=== PATIENT | male | born 1950 | race Caucasian/White ===

== ENCOUNTER 2016-06-01 17:19 | Inpatient (IN) | payer MEDICARE, OTHER ==
[~2016-06-01] VITALS: Ht 180.3 cm; Wt 71.5 kg
[~2016-06-01 17:19] MED LIST: ACET325T33 PO; BISA-57 PO; CEPH250S33 PO; DOCU-144 PO; SERT-165 PO; SPIR50TA PO
[2016-06-01] MEDS ORDERED: morphine 4 MG/ML VIAL IV STA ×2 (19:36→22:50)
[2016-06-01] MEDS ORDERED: HYDROCODONE/APAP (10/325) TAB PO ONE (20:00)
[2016-06-01] MEDS ORDERED: QUET100T32 PO (20:05)
[2016-06-01] MEDS ORDERED: TRAZ50TA18 PO (20:05)
[2016-06-01] MEDS ORDERED: SERT-165 PO (20:09)
[2016-06-01] MEDS ORDERED: CEPH500C PO (20:10)
[2016-06-01] MEDS ORDERED: BACTDS PO (20:11)
[2016-06-01] MEDS ORDERED: ACAM333T7 PO (20:17)
--- NOTE | 2016-06-01 22:20 | RADRPT ---
PROCEDURE: CT Chest without contrast. CLINICAL INDICATION: Anterior chest wall pain and tenderness. TECHNIQUE: A CT scan of the chest without contrast was performed. Coronal and sagittal reformatted images were obtained from the axial source images. CTDIvol: 15.81 mGy. DLP: 708.92 mGy-cm. One or more of the following dose reduction techniques were used: - Automated exposure control. - Adjustment of the mA and/or kV according to patient size. - Use of iterative reconstruction technique. COMPARISON: Liver CT dated 07/01/2015. FINDINGS: There is no suspicious thyroid lesion. No thoracic lymphadenopathy is seen. The trachea and mainst em bronchi are patent. The heart is not enlarged. There is no pericardial effusion. The main pulm onary artery is dilated (4.2 cm). There are mild arterial calcifications. There is no pneumomediast inum. There are scattered bilateral pleural calcifications. Mild to moderate emphysematous changes are not ed in both lungs. There is also mild to moderate pulmonary fibrosis, in a lower lung predominant di stribution, right more than left. No pleural effusion or pneumothorax is identified. The superior ossification center of the sternum is not united to the more inferior sternum, and is p osteriorly dislocated approximately 7 mm with respect to the more inferior sternum. This also appea rs to be associated with a very small fracture the anterior sternal cortex. There is minimal blood anterior and posterior to the sternum in this region. No evidence of injury to underlying mediastin al structures is seen. There are age indeterminate compression fractures at T4 (mild), T6 (moderate), T12 (moderate), and L 1 (mild to moderate. There also chronic-appearing compression fractures at T7 and T9-T11 (mild). The patient is status post cholecystectomy. The common bile duct is dilated (2.4 cm) with an internal medicine doctor al biliary stent in place. There is a nonspecific 1.2 cm low-attenuation lesion in the spleen, unch anged since the prior CT. IMPRESSION: 1. The superior ossification center of the sternum is not united to the more inferior sternum, and is posteriorly dislocated approximately 7 mm with respect to the more inferior sternum. This also a ppears to be associated with a very small fracture the anterior sternal cortex. There is minimal blo od anterior and posterior to the sternum in this region. No evidence of a injury to underlying medi astinal structures is seen. 2. Age indeterminate compression fractures at T4 (mild), T6 (moderate), T12 (moderate), and L1 (mil d to moderate. There also chronic-appearing compression fractures at T7 and T9-T11 (mild). This cou ld be further evaluated with MRI if clinically warranted. 3. Dilated main pulmonary artery, consistent with pulmonary hypertension. 4. Mild atherosclerotic arterial calcifications. 5. Mild to moderate emphysematous changes are noted in both lungs. 6. Mild to moderate pulmonary fibrosis, in a lower lung predominant distribution, right more than l eft. 7. Scattered bilateral pleural calcifications, nonspecific. 8. Status post cholecystectomy. 9. Dilated common bile duct (2.4 cm), increased since the prior liver CT dated 07/01/2015. There i s an internal biliary stent in place. Correlation with bilirubin levels is recommended. Call report: A call report of the findings was made to Dr. Kumari at 10:13 p.m. on 06/01/2016. RPTAT: HTAR .Boo Kinney MD, MD Date Time Electronically viewed and signed by .Boo Kinney MD, MD on 06/01/2016 22:19 .R/
[2016-06-01] MEDS ORDERED: IBUPROFEN 600 MG TAB PO ONE (22:30)
--- NOTE | 2016-06-01 22:39 | ERA ---
ER Documentation Chief Complaint Date/Time DATE: 06/01/16 TIME: 22:31 Chief Complaint Pt with CP and SOB X 2 days. HPI 65-year-old male presenting with chest pain for 3 days. He states he was stretching out his arms when he suddenly felt a pop in his upper chest. He has had sharp, stabbing pain in his chest since that has been nonradiating. Worse with movement or deep inspiration. She took his friend's [place] which slightly helped. He has had some associated shortness of breath, no fevers or chills, no nausea, vomiting, diaphoresis. He denies any trauma to the chest. ROS All systems reviewed and are negative except as per history of present illness. Medications Home Meds Reported Medications Acamprosate (Acamprosate Calcium) 333 Mg Tablet.dr, 666 MG PO TID, TAB 06/01/16 Sulfamethoxazole-Trimethoprim* (Bactrim* DS) 800-160 Mg Tab, 1 TAB PO BID, #20 TAB 06/01/16 Cephalexin* (Cephalexin*) 500 Mg Capsule, 500 MG PO TID, #28 CAP 06/01/16 Sertraline Hcl* (Sertraline Hcl*) 100 Mg Tablet, 100 MG PO QAM, #30 TAB 06/01/16 Trazodone Hcl* (Trazodone Hcl*) 50 Mg Tablet, 50 MG PO QHS, #30 TAB 06/01/16 Quetiapine Fumarate* (Quetiapine Fumarate*) 100 Mg Tablet, 100 MG PO HS, TAB 06/01/16 Discontinued Scripts Cephalexin* (Cephalexin* Susp) 250 Mg/5 Ml Susp.recon, 500 MG PO Q8 for 7 Days, BOTTLE Prov:RORY ANGULO MD 07/24/15 Spironolactone* (Aldactone*) 50 Mg Tab, 50 MG PO BID DIURETICS for 28 Days, TAB Prov:RORY ANGULO MD 07/24/15 Docusate Sodium* (Colace*) 100 Mg Cap, 100 MG PO Q12H Y for CONSTIPATION for 14 Days, CAP Prov:RORY ANGULO MD 07/24/15 Bisacodyl* (Dulcolax*) 5 Mg Tabec, 5 MG PO DAILY Y for CONSTIPATION for 14 Days , BOT Prov:RORY ANGULO MD 07/24/15 Acetaminophen* (Tylenol*) 325 Mg Tab, 650 MG PO Q6H Y for PAIN LEVEL 1-3 OR FEVER for 14 Days, TAB Prov:RORY ANGULO MD 07/24/15 Sertraline Hcl* (Sertraline Hcl*) 100 Mg Tablet, 100 MG PO DAILY, #30 Prov:MARTHA MAHAN MD 07/08/15 Allergies Allergies: Coded Allergies: No Known Allergy (Unverified , 06/01/16) PMhx/Soc History of Surgery: Yes (coronary intervention, stent placement) Anesthesia Reaction: No Hx Neurological Disorder: No Hx Respiratory Disorders: No Hx Cardiac Disorders: Yes (HTN) Hx Psychiatric Problems: No Hx Miscellaneous Medical Probl: No Hx Alcohol Use: Yes (2013) Hx Substance Use: Yes Hx Tobacco Use: Yes Smoking Status: Current every day smoker FmHx Family History: No diabetes Physical Exam Vitals Vital Signs Date Time Temp Pulse Resp B/P Pulse Ox O2 Delivery O2 Flow Rate FiO2 06/01/16 17:57 99.2 101 18 133/73 95 Physical Exam Const: Nontoxic, no respiratory distress, mild distress secondary to pain Head: Atraumatic Eyes: Normal Conjunctiva ENT: Normal External Ears, Nose and Mouth. Neck: Full range of motion..~ No meningismus. Chest wall: Tenderness to palpation of the upper third of the sternum with no palpable deformities. There is tenderness right over the sternum with tenderness to the sides of the sternum as well. There is no rib tenderness. No crepitus, no deformities, no ecchymoses. Resp: Clear to auscultation bilaterally Cardio: Regular rate and rhythm, no murmurs Abd: Soft, non tender, non distended. Normal bowel sounds Skin: No petechiae or rashes Back: No midline or flank tenderness Ext: No cyanosis, or edema Neur: Awake and alert Psych: Normal Mood and Affect Results 24 hrs Current Medications Medications (Trade) Dose Ordered Sig/Jesu Route PRN Reason Start Time Stop Time Status Last Admin Dose Admin Morphine Sulfate (morphine) 4 mg ONCE STAT IV 06/01/16 19:36 06/01/16 19:44 DC Acetaminophen/ Hydrocodone Bitart ([place] (10/325)) 1 tab ONCE ONCE PO 06/01/16 20:00 06/01/16 20:01 DC 06/01/16 19:48 Ibuprofen (Motrin) 600 mg ONCE ONCE PO 06/01/16 22:30 06/01/16 22:31 DC 06/01/16 22:47 Procedures/MDM EKG: Rate/Rhythm: Sinus tachycardia at 101 bpm QRS, ST, T-waves: No changes consistent w/ acute ischemia Impression: No evidence of ischemia or arrhythmia CT chest without IV contrast: IMPRESSION: 1. The superior ossification center of the sternum is not united to the more inferior sternum, and is posteriorly dislocated approximately 7 mm with respect to the more inferior sternum. This also appears to be associated with a very small fracture the anterior sternal cortex. There is minimal blood anterior and posterior to the sternum in this region. No evidence of a injury to underlying mediastinal structures is seen. 2. Age indeterminate compression fractures at T4 (mild), T6 (moderate), T12 ( moderate), and L1 (mild to moderate. There also chronic-appearing compression fractures at T7 and T9-T11 (mild). This could be further evaluated with MRI if clinically warranted. 3. Dilated main pulmonary artery, consistent with pulmonary hypertension. 4. Mild atherosclerotic arterial calcifications. 5. Mild to moderate emphysematous changes are noted in both lungs. 6. Mild to moderate pulmonary fibrosis, in a lower lung predominant distribution, right more than left. 7. Scattered bilateral pleural calcifications, nonspecific. 8. Status post cholecystectomy. 9. Dilated common bile duct (2.4 cm), increased since the prior liver CT dated 07/01/2015. There is an internal biliary stent in place. Correlation with bilirubin levels is recommended. Call report: A call report of the findings was made to Dr. Kumari at 10:13 p.m. on 06/01/2016. RPTAT: HTAR .Boo Kinney MD, MD Date Time Electronically viewed and signed by .Boo Kinney MD, MD on 06/01/2016 22:19 Patient is presenting with nontraumatic sternal fracture with a displaced fragment. There does not seem to be any damage to the mediastinal structures. He is hemodynamically stable. EKG did not show any significant abnormalities. I spoke with Dr. Keene, the cardiothoracic surgeon weed controller, who recommended admission for pain control and he stated he would see the patient in the morning if he is stable. I discussed the plan with the patient. He is agreeable to admission. Basic labs were sent and are still pending. Patient will be admitted to [facility]. Accepting Care Team: Current data and ongoing care discussed. Time: Time of admission Primary Provider: Jordan Consulting: Jassi Outstanding Data: none Departure Diagnosis: Primary Impression: Sternal fracture Qualified Code: S22.22XA - Closed fracture of body of sternum, initial encounter Additional Impression: Chest pain Qualified Code: R07.89 - Other chest pain LUCINDA KUMARI MD Jun 01, 2016 22:38
[2016-06-01] MEDS ORDERED: ONDANSETRON 4 MG INJ IV PRN (23:00)
[2016-06-01] MEDS ORDERED: ACETAMINOPHEN 325 MG TAB PO PRN (23:00)
[2016-06-02 00:27] LABS: ADD SCAN DIFF NO
[2016-06-02 00:30] LABS: ABNORMAL IP MESSAGE 1; BASOPHILS % 0.9 % (0.0-2.0); EOSINOPHILS # 0.2 10^3/ul (0.0-0.5); EOSINOPHILS % 5.8 % (0.0-7.0); HEMATOCRIT 29.7 % (42.0-52.0); LYMPHOCYTES # 0.9 10^3/ul (0.8-2.9); LYMPHOCYTES % 25.2 % (15.0-51.0); MEAN CORPUSCULAR HEMOGLOBIN 34.6 pg (29.0-33.0); MEAN CORPUSCULAR HGB CONC 33.7 g/dl (32.0-37.0); MEAN CORPUSCULAR VOLUME 102.8 fl (82.0-101.0); MEAN PLATELET VOLUME 10.5 fl (7.4-10.4); MONOCYTE # 0.5 10^3/ul (0.3-0.9); MONOCYTES % 13.3 % (0.0-11.0); NEUTROPHIL # 1.9 10^3/ul (1.6-7.5); NEUTROPHILS % 54.2 % (39.0-77.0); PLATELET COUNT 84 10^3/UL (140-415); RED BLOOD COUNT 2.89 10^6/ul (4.70-6.10); RED CELL DISTRIBUTION WIDTH 16.4 % (11.5-14.5); WHITE BLOOD COUNT 3.5 10^3/ul (4.8-10.8)
[2016-06-02 00:41] LABS: ALBUMIN 2.7 g/dl (3.3-4.9); INR 1.15; POTASSIUM 4.1 mmol/L (3.5-5.1); PROTIME 14.7 Sec (12.2-14.2); PT RATIO 1.1
[2016-06-02 00:42] LABS: PARTIAL THROMBOPLASTIN TIME 30.8 Sec (25.0-35.0)
[2016-06-02 00:43] LABS: BILIRUBIN,INDIRECT 0.5 mg/dl (0-1.1); BILIRUBIN,TOTAL 0.5 mg/dl (0.2-1.3); CREATININE 0.65 mg/dl (0.61-1.24)
[2016-06-02 00:44] LABS: ALBUMIN/GLOBULIN RATIO 0.57; CALCIUM 7.9 mg/dl (8.4-10.2); TOTAL PROTEIN 7.4 g/dl (6.1-8.1)
[2016-06-02 00:56] LABS: TROPONIN-I 0.025 ng/ml (0.00-0.12)
[2016-06-02 01:21] VITALS: TEMP 99
[2016-06-02 02:00] VITALS: BP 152/80; PULSE 75; RESP 20
[2016-06-02 02:13] VITALS: Ht 180.3 cm; Wt 71.5 kg
[2016-06-02] MEDS ORDERED: ACETAMINOPHEN 325 MG SUPP PR PRN (03:30)
[2016-06-02] MEDS ORDERED: ONDANSETRON 4 MG INJ IV PRN (03:30)
[2016-06-02] MEDS: morphine 2 MG INJ IV PRN ×4 (04:25→22:22)
[2016-06-02] MEDS: DEXTROSE 5%-0.9% NACL 1,000 ML IV SCH ×2 (04:25→18:07)
[2016-06-02 05:46] LABS: ABNORMAL IP MESSAGE 1; ADD SCAN DIFF NO; BASOPHILS % 0.6 % (0.0-2.0); EOSINOPHILS # 0.2 10^3/ul (0.0-0.5); HEMATOCRIT 30.2 % (42.0-52.0); HEMOGLOBIN 10.1 g/dl (14.0-18.0); LYMPHOCYTES # 0.9 10^3/ul (0.8-2.9); LYMPHOCYTES % 27.2 % (15.0-51.0); MEAN CORPUSCULAR HEMOGLOBIN 34.1 pg (29.0-33.0); MEAN CORPUSCULAR HGB CONC 33.4 g/dl (32.0-37.0); MEAN PLATELET VOLUME 10.1 fl (7.4-10.4); MONOCYTE # 0.4 10^3/ul (0.3-0.9); MONOCYTES % 12.3 % (0.0-11.0); NEUTROPHIL # 1.7 10^3/ul (1.6-7.5); NEUTROPHILS % 52.3 % (39.0-77.0); PLATELET COUNT 86 10^3/UL (140-415); RED BLOOD COUNT 2.96 10^6/ul (4.70-6.10); RED CELL DISTRIBUTION WIDTH 16.6 % (11.5-14.5); WHITE BLOOD COUNT 3.2 10^3/ul (4.8-10.8)
[2016-06-02 06:18] LABS: ALBUMIN 2.6 g/dl (3.3-4.9)
[2016-06-02 06:19] LABS: POTASSIUM 3.9 mmol/L (3.5-5.1)
[2016-06-02 06:21] LABS: BILIRUBIN,INDIRECT 0.4 mg/dl (0-1.1); BILIRUBIN,TOTAL 0.4 mg/dl (0.2-1.3); CREATININE 0.74 mg/dl (0.61-1.24); TOTAL PROTEIN 6.9 g/dl (6.1-8.1)
[2016-06-02] MEDS: PANTOPRAZOLE 40 MG INJ IV SCH (06:21)
[2016-06-02 06:22] LABS: ALBUMIN/GLOBULIN RATIO 0.6; CALCIUM 8.1 mg/dl (8.4-10.2)
[2016-06-02 08:10] VITALS: BP 170/82; RESP 20
[2016-06-02] MEDS ORDERED: LIDOCAINE 1% (MDV) 20 ML INJ SC ONE (12:00)
--- NOTE | 2016-06-02 17:07 | RADRPT ---
PROCEDURE: Ultrasound guidance for placement of needle in right upper extremity vein. CLINICAL INDICATION: Venous access. TECHNIQUE: Limited sonography of the right upper extremity was performed. Ultrasound images were recorded and stored in the patient's medical record. COMPARISON: None. FINDINGS: The ultrasound images demonstrate a patent right upper extremity vein. The PICC line was inserted b y the PICC line nurse. IMPRESSION: 1. Ultrasound guidance for a needle placement in a right upper extremity vein. 2. The visualized right upper extremity vein is patent. RPTAT: QQ .Gurjit Puri MD, MD Date Time Electronically viewed and signed by .Gurjit Puri MD, MD on 06/02/2016 17:07 .R/
[2016-06-02] MEDS: NICOTINE (21 MG/24 HR) PATCH TRANSDERM SCH (18:06)
--- NOTE | 2016-06-02 18:30 | RADRPT ---
PROCEDURE: XR Chest. CLINICAL INDICATION: Check PICC line position. TECHNIQUE: Single frontal view. COMPARISON: 07/17/2015. FINDINGS: There is a right arm PICC line with the tip in the lower superior vena cava. There are benign calci fied nodules bilaterally in the upper lung zones, unchanged. Mild scarring is present at the lung b ases. The lungs are otherwise clear. The heart is enlarged. There is calcification in the aorta consistent with atherosclerosis. There is no pleural effusion. There is no pneumothorax. IMPRESSION: 1. Satisfactory position of right arm PICC line. 2. Previous granulomatous disease. 3. Mild scarring at the lung bases. 4. Cardiomegaly and atherosclerosis. RPTAT: QQ .Gurjit Puri MD, MD Date Time Electronically viewed and signed by .Gurjit Puri MD, on 06/02/2016 18:30 .R/
[2016-06-02] MEDS ORDERED: SOD CHLORIDE 0.9% 100 ML ONE (19:43)
[2016-06-02 19:45] VITALS: BP 131/70; RESP 18
--- NOTE | 2016-06-02 22:58 | QN ---
Documentation Comment [id number] RORY ANGULO MD Jun 02, 2016 22:58
[2016-06-03] MEDS: morphine 2 MG INJ IV PRN ×3 (02:21→09:13)
[2016-06-03] MEDS: PANTOPRAZOLE 40 MG INJ IV SCH (04:45)
[2016-06-03 05:14] LABS: ADD SCAN DIFF NO
[2016-06-03 05:19] LABS: ABNORMAL IP MESSAGE 1; BASOPHILS % 0.7 % (0.0-2.0); EOSINOPHILS # 0.2 10^3/ul (0.0-0.5); EOSINOPHILS % 4.2 % (0.0-7.0); HEMATOCRIT 29.9 % (42.0-52.0); HEMOGLOBIN 9.9 g/dl (14.0-18.0); LYMPHOCYTES # 0.6 10^3/ul (0.8-2.9); LYMPHOCYTES % 13.5 % (15.0-51.0); MEAN CORPUSCULAR HGB CONC 33.1 g/dl (32.0-37.0); MEAN CORPUSCULAR VOLUME 102.7 fl (82.0-101.0); MEAN PLATELET VOLUME 10.5 fl (7.4-10.4); MONOCYTE # 0.5 10^3/ul (0.3-0.9); MONOCYTES % 11.3 % (0.0-11.0); NEUTROPHIL # 2.8 10^3/ul (1.6-7.5); NEUTROPHILS % 69.6 % (39.0-77.0); PLATELET COUNT 96 10^3/UL (140-415); RED BLOOD COUNT 2.91 10^6/ul (4.70-6.10); RED CELL DISTRIBUTION WIDTH 16.3 % (11.5-14.5); WHITE BLOOD COUNT 4.1 10^3/ul (4.8-10.8)
[2016-06-03 05:37] LABS: ALBUMIN 2.8 g/dl (3.3-4.9)
[2016-06-03 05:38] LABS: POTASSIUM 4.2 mmol/L (3.5-5.1)
[2016-06-03 05:40] LABS: ALBUMIN/GLOBULIN RATIO 0.6; BILIRUBIN,INDIRECT 0.8 mg/dl (0-1.1); BILIRUBIN,TOTAL 0.8 mg/dl (0.2-1.3); CALCIUM 7.9 mg/dl (8.4-10.2); CREATININE 0.57 mg/dl (0.61-1.24); TOTAL PROTEIN 7.4 g/dl (6.1-8.1)
[2016-06-03] MEDS: DEXTROSE 5%-0.9% NACL 1,000 ML IV SCH ×2 (06:16→21:16)
[2016-06-03 07:00] VITALS: BP 180/86; RESP 20
[2016-06-03] MEDS: NICOTINE (21 MG/24 HR) PATCH TRANSDERM SCH (09:14)
[2016-06-03] MEDS: morphine 4 MG/ML VIAL IV PRN ×2 (12:17→21:16)
--- NOTE | 2016-06-03 19:36 | CONS ---
DATE OF ADMISSION: 06/03/2016 DATE OF CONSULTATION: 06/03/2016 HISTORY OF PRESENT ILLNESS: This is a 65-year-old male, who was admitted because of chest pain. He complained of sternal pain with a popping sound after stretching his arms about a week ago. The pa henri was admitted to the emergency room, did not have any evidence of hemodynamic instability. At that time, a CT scan of the chest was done, which showed superior ossification center of the sternum ; it was not united and dislocated posterior about 7 mm, dilated main pulmonary artery consistent wi th pulmonary hypertension, but no evidence of any bleeding, extravasation, or dissection. PAST MEDICAL HISTORY: Significant for hypertension, hyperlipidemia. PAST SURGICAL HISTORY: None. ALLERGIES: NONE. SOCIAL HISTORY: Positive for smoking. The patient also has an extensive amount of tattoos in the p ast. MEDICATIONS: List reviewed. REVIEW OF SYSTEMS: No upper or lower GI bleeding, nausea, vomiting, constipation, diarrhea. No hem aturia or dysuria. No skin changes, rashes, moles. No shortness of breath. SOCIAL HISTORY: Positive for alcohol use, tobacco abuse, and substance abuse. PHYSICAL EXAMINATION: VITAL SIGNS: Blood pressure is 131/70, pulse is 90, respirations are 18, saturation is 98% on room air, temperature is 98.3. HEENT: Normocephalic, atraumatic. PERRLA. NECK: Supple. No JVD, no carotid bruits. CARDIOVASCULAR: Normal S1, S2. LUNGS: . ABDOMEN: Soft. EXTREMITIES: Warm. CHEST: There is point tenderness in the upper part of the sternum. No clicks. LABORATORY VALUES: Hemoglobin 9.9, white count 4.5, platelet count 96,000. INR 1.15. Creatinine o f 0.57. IMPRESSION: Sternal fracture without trauma. RECOMMENDATIONS: No signs of any extravasation or bleeding. No signs of any great vessel injury. Would continue medical management, pain management, pulmonary toilet. Dictated By: DARCIE COSTA/NTS Conf#: [id number] DID#: [id number]
[2016-06-03 20:00] VITALS: BP 178/78; PULSE 77; RESP 20
--- NOTE | 2016-06-03 20:00 | CONS ---
DATE OF ADMISSION: 06/03/2016 DATE OF CONSULTATION: GASTROENTEROLOGY CONSULTATION HISTORY OF PRESENT ILLNESS: This is a 65-year-old male with a history of cholecystectomy, pancreati tis, status post biliary stent 2 years ago at [facility], seizure disorder[facility] of [facility] stretching suddenly in the morning. In the ER, the patient w as evaluated and found to have a sternal fracture with blood anterior and posterior to the sternum a nd dislocation of sternum, so he was admitted for further management. He also had a compression fra cture of T4-T6, T7, T9 and T11 with pulmonary hypertension, cholecystectomy and also two biliary int ernal stents and dilatation of the bile duct up to 2.4 cm. His alkaline phosphatase is also very hi gh, greater than 400. Patient continues to complain of chest pain. No shortness of breath, no naus ea, no vomiting, no fever, no chills. PAST MEDICAL HISTORY: As described. ALLERGIES: Negative. FAMILY HISTORY: Negative. SOCIAL HISTORY: He is an ex-drug abuser. MEDICATIONS: Reviewed. PHYSICAL EXAMINATION: GENERAL: Alert, awake, not in distress. VITAL SIGNS: Stable. ABDOMEN: Benign. CARDIOVASCULAR: No murmur, gallop or click. LUNGS: Clear. EXTREMITIES: No edema. CENTRAL NERVOUS SYSTEM: Grossly within normal limits. LABORATORY DATA: His hematocrit is 29.9, platelet count is 96, which is low, MCV is high. INR is 1 .4 and alkaline phosphatase is 623. SGOT is 146. IMPRESSION: 1. Biliary obstruction with elevated abnormal LFT. 2. Biliary stent 2 years old. 3. Anemia. 4. Sternal fracture and dislocation. 5. T vertebral fracture. While dictating I reviewed the ERCP report the patient's history was unreliable. ERCP was don e at this facility 1 year ago by me and the patient never came to the office for followup. He had a stent placed for a biliary stricture. The patient once he is stable definitely needs ERCP and the placement of a stent after . Dictated By: FARHEEN ROSARIO/YUNI Conf#: [id number] DID#: [id number]
[2016-06-03] MEDS: traZODone 50 MG TAB PO SCH (21:15)
[2016-06-03 21:30] VITALS: BP 180/84; PULSE 75; RESP 20
[2016-06-03 22:20] VITALS: BP 180/114; PULSE 78; RESP 20
--- NOTE | 2016-06-03 23:34 | PN ---
Date/Time of Note Date/Time of Note DATE: 06/03/16 TIME: 23:32 Assessment/Plan VTE Prophylaxis VTE Prophylaxis Intervention: other Lines/Catheters IV Catheter Type (from Nrsg): PICC Line Central line still needed: Yes Urinary Cath still in place: No Reason Cath still needed: other (indicate) Assessment/Plan Chief Complaint/Hosp Course sternal fracture cbd stent abn lft old thoracic fracture plan per gi and surgery Problems: Subjective 24 Hr Interval Summary Cardiovascular: no complaints Gastrointestinal: no complaints Exam/Review of Systems Vital Signs Vitals Vital Signs Date Time Temp Pulse Resp B/P Pulse Ox O2 Delivery O2 Flow Rate FiO2 06/03/16 22:20 78 20 180/114 94 Room Air 06/03/16 20:00 98.0 Intake and Output 06/02/16 06/02/16 06/03/16 15:00 23:00 07:00 Intake Total 780 ml 1840 ml Output Total 1100 ml Balance -320 ml 1840 ml Exam Neck: supple Respiratory: clear to auscultation Cardiovascular: regular rate and rhythm Gastrointestinal: soft Results Result Diagram: 06/03/16 0448 06/03/16 0448 Results 24 hrs Laboratory Tests Test 06/03/16 04:48 White Blood Count 4.1 #L Red Blood Count 2.91 L Hemoglobin 9.9 L Hematocrit 29.9 L Mean Corpuscular Volume 102.7 H Mean Corpuscular Hemoglobin 34.0 H Mean Corpuscular Hemoglobin Concent 33.1 Red Cell Distribution Width 16.3 H Platelet Count 96 L Mean Platelet Volume 10.5 H Neutrophils % 69.6 Lymphocytes % 13.5 L Monocytes % 11.3 H Eosinophils % 4.2 Basophils % 0.7 Nucleated Red Blood Cells % 0.0 Neutrophils # 2.8 Lymphocytes # 0.6 L Monocytes # 0.5 Eosinophils # 0.2 Basophils # 0.0 Nucleated Red Blood Cells # 0.0 Sodium Level 139 Potassium Level 4.2 Chloride Level 104 Carbon Dioxide Level 27 Anion Gap 12 Blood Urea Nitrogen 12 Creatinine 0.57 L Glucose Level 91 Calcium Level 7.9 L Total Bilirubin 0.8 Direct Bilirubin 0.00 Indirect Bilirubin 0.8 Aspartate Amino Transf (AST/SGOT) 156 #H Alanine Aminotransferase (ALT/SGPT) 51 Alkaline Phosphatase 623 H Total Protein 7.4 Albumin 2.8 L Globulin 4.60 H Albumin/Globulin Ratio 0.60 Medications Medications Current Medications Dextrose/Sodium Chloride (D5-NS) 1,000 ml @ 70 mls/hr [id number] IV Last administered on 06/03/16 21:16; Admin Dose 70 MLS/HR; Start 06/02/16 at 03:30 Acetaminophen (Tylenol Supp) 325 mg Q6H PRN [place] pain, fever; Start 06/02/16 at 03:30 Morphine Sulfate (morphine) 2 mg Q4H PRN IV pain Last administered on 09:13; Admin Dose 2 MG; Start 06/02/16 at 03:30 Morphine Sulfate (morphine) 4 mg Q4H PRN IV pain Last administered on 21:16; Admin Dose 4 MG; Start 06/02/16 at 03:30 Ondansetron HCl (Zofran Inj) 4 mg Q6H PRN IV NAUSEA AND/OR VOMITING; Start at 03:30 Nicotine (Nicoderm 21 Mg/ 24hr) 1 patch DAILY TRANSDERM Last administered on 09:14; Admin Dose 1 PATCH; Start 06/02/16 at 14:00 IV Flush (NS 10 ml) 10 ml PRN PRN IV IV PROTOCOL; Start 06/02/16 at 20:00 Pantoprazole (Protonix Tab) 40 mg DAILY@06 PO ; Start 06/04/16 at 06:00 Clonidine (Catapres) 0.1 mg TID PRN PO ELEVATED BLOOD PRESSURE Last administered on 06/03/16 22:25; Admin Dose 0.1 MG; Start 06/03/16 at 14:00 Trazodone HCl (Desyrel) 50 mg HS PO Last administered on 06/03/16 21:15; Admin Dose 50 MG; Start 06/03/16 at 21:00 Sertraline HCl (Zoloft) 100 mg DAILY PO ; Start 06/04/16 at 09:00 Hydralazine HCl (Apresoline) 10 mg Q6H PRN IV ELEVATED SYSTOLIC BP; Start 06/03 at 23:30 RORY ANGULO MD Jun 03, 2016 23:34
[2016-06-03] MEDS: hydrALAzine 20 MG INJ IV PRN (23:49)
[2016-06-03 23:52] VITALS: BP 180/92; RESP 20
[2016-06-04 00:30] VITALS: BP 158/80; RESP 20
[2016-06-04] MEDS: morphine 4 MG/ML VIAL IV PRN ×4 (01:25→18:41)
[2016-06-04] MEDS: PANTOPRAZOLE (EC) 40 MG TAB PO SCH (05:14)
[2016-06-04 05:21] LABS: ALBUMIN 2.6 g/dl (3.3-4.9)
[2016-06-04 05:22] LABS: POTASSIUM 4.1 mmol/L (3.5-5.1)
[2016-06-04 05:24] LABS: CREATININE 0.49 mg/dl (0.61-1.24)
[2016-06-04 05:25] LABS: ALBUMIN/GLOBULIN RATIO 0.59; CALCIUM 7.7 mg/dl (8.4-10.2)
[2016-06-04 06:10] LABS: CARCINOEMBRYONIC ANTIGEN 8.6 ng/ml (0.0-5.0)
[2016-06-04 06:14] LABS: CANCER ANTIGEN 19-9 46.6 U/ml (0.0-37.0)
[2016-06-04 08:18] VITALS: BP 133/73; RESP 18
[2016-06-04] MEDS: SERTRALINE 100 MG TAB PO SCH (08:58)
[2016-06-04] MEDS: NICOTINE (21 MG/24 HR) PATCH TRANSDERM SCH (08:59)
[2016-06-04] MEDS: DEXTROSE 5%-0.9% NACL 1,000 ML IV SCH (10:55)
[2016-06-04] MEDS: morphine 2 MG INJ IV PRN (14:01)
[2016-06-04] MEDS: hydrALAzine 20 MG INJ IV PRN (19:30)
--- NOTE | 2016-06-04 19:51 | PN ---
Date/Time of Note Date/Time of Note DATE: 06/04/16 TIME: 19:50 Assessment/Plan VTE Prophylaxis VTE Prophylaxis Intervention: other Lines/Catheters IV Catheter Type (from Nrs): Central line still needed: No Urinary Cath still in place: No Assessment/Plan Chief Complaint/Hosp Course IMPRESSION: Sternal fracture without trauma. RECOMMENDATIONS: No signs of any extravasation or bleeding. No signs of any great vessel injury. Would continue medical management, pain management, pulmonary toilet. Problems: Subjective 24 Hr Interval Summary Gastrointestinal: no complaints Genitourinary: no complaints Musculoskeletal: no complaints Skin: no complaints Neurologic: no complaints Exam/Review of Systems Vital Signs Vitals Vital Signs Date Time Temp Pulse Resp B/P Pulse Ox O2 Delivery O2 Flow Rate FiO2 06/04/16 08:18 97.8 74 18 133/73 95 06/03/16 23:52 Room Air Intake and Output 06/03/16 06/03/16 06/04/16 15:00 23:00 07:00 Intake Total 1940 ml Output Total 1450 ml Balance 490 ml Exam ENMT: nl external ears & nose, nl lips & teeth, nl nasal mucosa & septum Neck: non-tender, supple Respiratory: clear to auscultation, normal air movement Cardiovascular: nl pulses, regular rate and rhythm Results Result Diagram: 06/03/16 0448 06/04/16 0433 Results 24 hrs Laboratory Tests Test 06/04/16 04:33 Sodium Level 136 Potassium Level 4.1 Chloride Level 104 Carbon Dioxide Level 23 Anion Gap 13 Blood Urea Nitrogen 9 Creatinine 0.49 L Glucose Level 134 # Calcium Level 7.7 L Total Bilirubin 1.0 Direct Bilirubin 0.00 Indirect Bilirubin 1.0 Aspartate Amino Transf (AST/SGOT) 116 H Alanine Aminotransferase (ALT/SGPT) 44 Alkaline Phosphatase 537 H Total Protein 7.0 Albumin 2.6 L Globulin 4.40 H Albumin/Globulin Ratio 0.59 Carcinoembryonic Antigen 8.6 H CA 19-9 Antigen 46.6 H Medications Medications Current Medications Dextrose/Sodium Chloride (D5-NS) 1,000 ml @ 70 mls/hr [id number] IV Last administered on 06/04/16t 10:55; Admin Dose 70 MLS/HR; Start 06/02/16 at 03:30 Acetaminophen (Tylenol Supp) 325 mg Q6H PRN [place] pain, fever; Start 06/02/16 at 03:30 Morphine Sulfate (morphine) 2 mg Q4H PRN IV pain Last administered on 14:01; Admin Dose 2 MG; Start 06/02/16 at 03:30 Morphine Sulfate (morphine) 4 mg Q4H PRN IV pain Last administered on 18:41; Admin Dose 4 MG; Start 06/02/16 at 03:30 Ondansetron HCl (Zofran Inj) 4 mg Q6H PRN IV NAUSEA AND/OR VOMITING; Start at 03:30 Nicotine (Nicoderm 21 Mg/ 24hr) 1 patch DAILY TRANSDERM Last administered on 08:59; Admin Dose 1 PATCH; Start 06/02/16 at 14:00 IV Flush (NS 10 ml) 10 ml PRN PRN IV IV PROTOCOL; Start 06/02/16 at 20:00 Pantoprazole (Protonix Tab) 40 mg DAILY@06 PO Last administered on 06/04/16 05 :14; Admin Dose 40 MG; Start 06/04/16 at 06:00 Clonidine (Catapres) 0.1 mg TID PRN PO ELEVATED BLOOD PRESSURE Last administered on 06/03/16 22:25; Admin Dose 0.1 MG; Start 06/03/16 at 14:00 Trazodone HCl (Desyrel) 50 mg HS PO Last administered on 06/03/16 21:15; Admin Dose 50 MG; Start 06/03/16 at 21:00 Sertraline HCl (Zoloft) 100 mg DAILY PO Last administered on 06/04/16 08:58; Admin Dose 100 MG; Start 06/04/16 at 09:00 Hydralazine HCl (Apresoline) 10 mg Q6H PRN IV ELEVATED SYSTOLIC BP Last administered on 06/04/16 19:30; Admin Dose 10 MG; Start 06/03/16 at 23:30 DARCIE ROBINS MD Jun 04, 2016 19:51
[2016-06-04 20:57] VITALS: BP 150/70; RESP 18
[2016-06-04] MEDS ORDERED: QUETIAPINE 100 MG TAB PO SCH (21:00)
[2016-06-04] MEDS ORDERED: DIPHENHYDRAMINE 25 MG CAP PO PRN (21:00)
[2016-06-04] MEDS: traZODone 50 MG TAB PO SCH (21:41)
--- NOTE | 2016-06-04 22:49 | PN ---
Date/Time of Note Date/Time of Note DATE: 06/04/16 TIME: 22:48 Assessment/Plan VTE Prophylaxis VTE Prophylaxis Intervention: other Lines/Catheters IV Catheter Type (from Nrsg): PICC Line Central line still needed: Yes Urinary Cath still in place: No Reason Cath still needed: other (indicate) Assessment/Plan Chief Complaint/Hosp Course sternal fracture cbd stent abn lft old thoracic fracture plan per gi and surgery per dr franco Problems: Subjective 24 Hr Interval Summary Subjective hx not possible: other (bone pain+,no back pain) Exam/Review of Systems Vital Signs Vitals Vital Signs Date Time Temp Pulse Resp B/P Pulse Ox O2 Delivery O2 Flow Rate FiO2 06/04/16 20:57 97.6 98 18 150/70 98 06/03/16 23:52 Room Air Intake and Output 06/03/16 06/03/16 06/04/16 15:00 23:00 07:00 Intake Total 1940 ml Output Total 1450 ml Balance 490 ml Exam Neck: supple Respiratory: clear to auscultation Cardiovascular: regular rate and rhythm Gastrointestinal: soft Musculoskeletal: nl extremities to inspection Results Result Diagram: 06/03/16 0448 06/04/16 0433 Results 24 hrs Laboratory Tests Test 06/04/16 04:33 Sodium Level 136 Potassium Level 4.1 Chloride Level 104 Carbon Dioxide Level 23 Anion Gap 13 Blood Urea Nitrogen 9 Creatinine 0.49 L Glucose Level 134 # Calcium Level 7.7 L Total Bilirubin 1.0 Direct Bilirubin 0.00 Indirect Bilirubin 1.0 Aspartate Amino Transf (AST/SGOT) 116 H Alanine Aminotransferase (ALT/SGPT) 44 Alkaline Phosphatase 537 H Total Protein 7.0 Albumin 2.6 L Globulin 4.40 H Albumin/Globulin Ratio 0.59 Carcinoembryonic Antigen 8.6 H CA 19-9 Antigen 46.6 H Medications Medications Current Medications Dextrose/Sodium Chloride (D5-NS) 1,000 ml @ 70 mls/hr [id number] IV Last administered on 06/04/16 10:55; Admin Dose 70 MLS/HR; Start 06/02/16 at 03:30 Acetaminophen (Tylenol Supp) 325 mg Q6H PRN [place] pain, fever; Start 06/02/16 at 03:30 Morphine Sulfate (morphine) 2 mg Q4H PRN IV pain Last administered on 14:01; Admin Dose 2 MG; Start 06/02/16 at 03:30 Morphine Sulfate (morphine) 4 mg Q4H PRN IV pain Last administered on 18:41; Admin Dose 4 MG; Start 06/02/16 at 03:30 Ondansetron HCl (Zofran Inj) 4 mg Q6H PRN IV NAUSEA AND/OR VOMITING; Start at 03:30 Nicotine (Nicoderm 21 Mg/ 24hr) 1 patch DAILY TRANSDERM Last administered on 08:59; Admin Dose 1 PATCH; Start 06/02/16 at 14:00 IV Flush (NS 10 ml) 10 ml PRN PRN IV IV PROTOCOL; Start 06/02/16 at 20:00 Pantoprazole (Protonix Tab) 40 mg DAILY@06 PO Last administered on 06/04/16 05 :14; Admin Dose 40 MG; Start 06/04/16 at 06:00 Clonidine (Catapres) 0.1 mg TID PRN PO ELEVATED BLOOD PRESSURE Last administered on 06/03/16 22:25; Admin Dose 0.1 MG; Start 06/03/16 at 14:00 Trazodone HCl (Desyrel) 50 mg HS PO Last administered on 06/04/16 21:41; Admin Dose 50 MG; Start 06/03/16 at 21:00 Sertraline HCl (Zoloft) 100 mg DAILY PO Last administered on 06/04/16 08:58; Admin Dose 100 MG; Start 06/04/16 at 09:00 Hydralazine HCl (Apresoline) 10 mg Q6H PRN IV ELEVATED SYSTOLIC BP Last administered on 06/04/16 19:30; Admin Dose 10 MG; Start 06/03/16 at 23:30 Diphenhydramine HCl (Benadryl) 25 mg BID PRN PO ITCHING Last administered on 21:41; Admin Dose 25 MG; Start 06/04/16 at 21:00 Quetiapine Fumarate (Seroquel) 100 mg HS PO Last administered on 06/04/16 21: 41; Admin Dose 100 MG; Start 06/04/16 at 21:00 RORY ANGULO MD Jun 04, 2016 22:49
[2016-06-05] MEDS: DEXTROSE 5%-0.9% NACL 1,000 ML IV SCH ×2 (03:00→05:06)
[2016-06-05] MEDS: PANTOPRAZOLE (EC) 40 MG TAB PO SCH (05:06)
[2016-06-05] MEDS: morphine 4 MG/ML VIAL IV PRN (05:06)
[2016-06-05 08:19] VITALS: BP 148/70; RESP 20
[2016-06-05] MEDS: NICOTINE (21 MG/24 HR) PATCH TRANSDERM SCH (09:09)
[2016-06-05] MEDS: SERTRALINE 100 MG TAB PO SCH (09:10)
--- NOTE | 2016-06-05 14:10 | PN ---
Date/Time of Note Date/Time of Note DATE: 06/05/16 TIME: 14:09 Assessment/Plan VTE Prophylaxis VTE Prophylaxis Intervention: other Lines/Catheters IV Catheter Type (from Nrs): Urinary Cath still in place: No Assessment/Plan Chief Complaint/Hosp Course IMPRESSION: Sternal fracture without trauma. RECOMMENDATIONS: No signs of any extravasation or bleeding. No signs of any great vessel injury. Would continue medical management, pain management, pulmonary toilet. Problems: Subjective 24 Hr Interval Summary Cardiovascular: no complaints Gastrointestinal: no complaints Genitourinary: no complaints Exam/Review of Systems Vital Signs Vitals Vital Signs Date Time Temp Pulse Resp B/P Pulse Ox O2 Delivery O2 Flow Rate FiO2 06/05/16 08:19 99.1 86 20 148/70 92 06/03/16 23:52 Room Air Intake and Output 06/04/16 06/04/16 06/05/16 15:00 23:00 07:00 Intake Total 350 ml 1970 ml 1640 ml Output Total 1500 ml Balance 350 ml 1970 ml 140 ml Exam Neck: non-tender, supple Respiratory: clear to auscultation, normal air movement Cardiovascular: nl pulses, regular rate and rhythm Results Result Diagram: 06/03/16 0448 06/04/16 0433 Medications Medications Current Medications Dextrose/Sodium Chloride (D5-NS) 1,000 ml @ 70 mls/hr [id number] IV Last administered on 06/05/16 05:06; Admin Dose 70 MLS/HR; Start 06/02/16 at 03:30 Acetaminophen (Tylenol Supp) 325 mg Q6H PRN [place] pain, fever; Start 06/02/16 at 03:30 Morphine Sulfate (morphine) 2 mg Q4H PRN IV pain Last administered on 14:01; Admin Dose 2 MG; Start 06/02/16 at 03:30 Morphine Sulfate (morphine) 4 mg Q4H PRN IV pain Last administered on 05:06; Admin Dose 4 MG; Start 06/02/16 at 03:30 Ondansetron HCl (Zofran Inj) 4 mg Q6H PRN IV NAUSEA AND/OR VOMITING; Start at 03:30 Nicotine (Nicoderm 21 Mg/ 24hr) 1 patch DAILY TRANSDERM Last administered on 09:09; Admin Dose 1 PATCH; Start 06/02/16 at 14:00 IV Flush (NS 10 ml) 10 ml PRN PRN IV IV PROTOCOL; Start 06/02/16 at 20:00 Pantoprazole (Protonix Tab) 40 mg DAILY@06 PO Last administered on 06/05/16 05 :06; Admin Dose 40 MG; Start 06/04/16 at 06:00 Clonidine (Catapres) 0.1 mg TID PRN PO ELEVATED BLOOD PRESSURE Last administered on 06/03/16 22:25; Admin Dose 0.1 MG; Start 06/03/16 at 14:00 Trazodone HCl (Desyrel) 50 mg HS PO Last administered on 06/04/16 21:41; Admin Dose 50 MG; Start 06/03/16 at 21:00 Sertraline HCl (Zoloft) 100 mg DAILY PO Last administered on 06/05/16 09:10; Admin Dose 100 MG; Start 06/04/16 at 09:00 Hydralazine HCl (Apresoline) 10 mg Q6H PRN IV ELEVATED SYSTOLIC BP Last administered on 06/04/16 19:30; Admin Dose 10 MG; Start 06/03/16 at 23:30 Diphenhydramine HCl (Benadryl) 25 mg BID PRN PO ITCHING Last administered on 21:41; Admin Dose 25 MG; Start 06/04/16 at 21:00 Quetiapine Fumarate (Seroquel) 100 mg HS PO Last administered on 06/04/16 21: 41; Admin Dose 100 MG; Start 06/04/16 at 21:00 DARCIE ROBINS MD Jun 05, 2016 14:10
--- NOTE | 2016-06-05 14:33 | CONS ---
Date/Time of Note Date/Time of Note DATE: 06/05/16 TIME: 14:32 Assessment/Plan Assessment/Plan Additional Assessment/Plan IMPRESSION: 1. Biliary obstruction with elevated abnormal LFT. 2. Biliary stent 2 years old. 3. Anemia. 4. Sternal fracture and dislocation. 5. T vertebral fracture. Plan CT scan of biliary system. pain management Consultation Date/Type/Reason Admit Date/Time Jun 03, 2016 at 10:56 Initial Consult Date 24 HR Interval Summary Constitutional: improved Exam/Review of Systems Vital Signs Vitals Vital Signs Date Time Temp Pulse Resp B/P Pulse Ox O2 Delivery O2 Flow Rate FiO2 06/05/16 08:19 99.1 86 20 148/70 92 06/03/16 23:52 Room Air Intake and Output 06/04/16 06/04/16 06/05/16 15:00 23:00 07:00 Intake Total 350 ml 1970 ml 1640 ml Output Total 1500 ml Balance 350 ml 1970 ml 140 ml Exam Constitutional: alert, oriented, well developed Psych: nl mood/affect, no complaints Head: atraumatic, normocephalic Eyes: EOMI, PERRL, nl conjunctiva, nl lids, nl sclera ENMT: nl external ears & nose, nl lips & teeth, nl nasal mucosa & septum Neck: non-tender, supple Respiratory: clear to auscultation, normal air movement Cardiovascular: nl pulses, regular rate and rhythm Gastrointestinal: nl liver, spleen, non-tender, soft Musculoskeletal: nl extremities to inspection, nl gait and stance Extremities: normal pulses Neurological: POLYSOMNOGRAPHER II-XII intact, nl mental status, nl speech, nl strength Skin: nl turgor, No rash or lesions Lymph: nl lymph nodes Results Result Diagram: 06/03/16 0448 06/04/16 0433 Medications Medications Current Medications Dextrose/Sodium Chloride (D5-NS) 1,000 ml @ 70 mls/hr [id number] IV Last administered on 06/05/16 05:06; Admin Dose 70 MLS/HR; Start 06/02/16 at 03:30 Acetaminophen (Tylenol Supp) 325 mg Q6H PRN [place] pain, fever; Start 06/02/16 at 03:30 Morphine Sulfate (morphine) 2 mg Q4H PRN IV pain Last administered on 14:01; Admin Dose 2 MG; Start 06/02/16 at 03:30 Morphine Sulfate (morphine) 4 mg Q4H PRN IV pain Last administered on 05:06; Admin Dose 4 MG; Start 06/02/16 at 03:30 Ondansetron HCl (Zofran Inj) 4 mg Q6H PRN IV NAUSEA AND/OR VOMITING; Start at 03:30 Nicotine (Nicoderm 21 Mg/ 24hr) 1 patch DAILY TRANSDERM Last administered on 09:09; Admin Dose 1 PATCH; Start 06/02/16 at 14:00 IV Flush (NS 10 ml) 10 ml PRN PRN IV IV PROTOCOL; Start 06/02/16 at 20:00 Pantoprazole (Protonix Tab) 40 mg DAILY@06 PO Last administered on 06/05/16 05 :06; Admin Dose 40 MG; Start 06/04/16 at 06:00 Clonidine (Catapres) 0.1 mg TID PRN PO ELEVATED BLOOD PRESSURE Last administered on 06/03/16 22:25; Admin Dose 0.1 MG; Start 06/03/16 at 14:00 Trazodone HCl (Desyrel) 50 mg HS PO Last administered on 06/04/16 21:41; Admin Dose 50 MG; Start 06/03/16 at 21:00 Sertraline HCl (Zoloft) 100 mg DAILY PO Last administered on 06/05/16 09:10; Admin Dose 100 MG; Start 06/04/16 at 09:00 Hydralazine HCl (Apresoline) 10 mg Q6H PRN IV ELEVATED SYSTOLIC BP Last administered on 06/04/16 19:30; Admin Dose 10 MG; Start 06/03/16 at 23:30 Diphenhydramine HCl (Benadryl) 25 mg BID PRN PO ITCHING Last administered on 21:41; Admin Dose 25 MG; Start 06/04/16 at 21:00 Quetiapine Fumarate (Seroquel) 100 mg HS PO Last administered on 06/04/16 21: 41; Admin Dose 100 MG; Start 06/04/16 at 21:00 FARHEEN WOODWARD MD Jun 05, 2016 14:33
--- NOTE | 2016-06-05 14:55 | CONS ---
DATE OF ADMISSION: 06/03/2016 DATE OF CONSULTATION: HISTORY OF PRESENT ILLNESS: A 65-year-old male admitted with a sternal fracture, being evaluated by the cardiothoracic surgeon and opted for conservative treatment. Patient also has a bile duct sten t, which was placed by me 1 year ago, never came back to the office for followup and patient has no abdominal pain, no fever. OBJECTIVE: VITAL SIGNS: Stable. ABDOMEN: Benign. CARDIOVASCULAR, RESPIRATORY, CENTRAL NERVOUS SYSTEM: Grossly within normal limits. The patient cannot lie down flat, even for a minute, so a CAT scan or MRCP could not be done. 1. Sternal injury without trauma. 2. Biliary stent. 3. Vertebral fracture. 4. Dilated bile duct and abnormal LFT. PLAN: Continue present care. Continue pain management. If the patient goes for a CAT scan, we betzy l make an attempt to get it done. Dictated By: FARHEEN ROSARIO/NTS Conf#: [id number] DID#: [id number] CC: FARHEEN WOODWARD MD;*EndCC*
--- NOTE | 2016-06-05 15:30 | PN ---
Date/Time of Note Date/Time of Note DATE: 06/05/16 TIME: 15:28 Assessment/Plan VTE Prophylaxis VTE Prophylaxis Intervention: SCD's Lines/Catheters IV Catheter Type (from Nrsg): Urinary Cath still in place: No Assessment/Plan Chief Complaint/Hosp Course 1. sternal fracture 2. cbd stent 3. old thoracic fracture plan per gi and surgery per dr franco Problems: Assessment/Plan 1. Pt has poor appetite, on IV fluids hydration 2. Plan per surgeon. Subjective 24 Hr Interval Summary Constitutional: poor po Eyes: no complaints ENT: no complaints Respiratory: no complaints Cardiovascular: no complaints Gastrointestinal: decreased appetite Genitourinary: no complaints Musculoskeletal: restricted range of motion Skin: no complaints Exam/Review of Systems Vital Signs Vitals Vital Signs Date Time Temp Pulse Resp B/P Pulse Ox O2 Delivery O2 Flow Rate FiO2 06/05/16 08:19 99.1 86 20 148/70 92 06/03/16 23:52 Room Air Intake and Output 06/04/16 06/04/16 06/05/16 14:59 22:59 06:59 Intake Total 350 ml 1970 ml 1640 ml Output Total 1500 ml Balance 350 ml 1970 ml 140 ml Exam Constitutional: alert, oriented, well developed Psych: nl mood/affect, no complaints Head: atraumatic, normocephalic Eyes: EOMI, nl conjunctiva ENMT: nl external ears & nose, nl lips & teeth, nl nasal mucosa & septum Neck: non-tender, supple Respiratory: clear to auscultation, normal air movement Cardiovascular: nl pulses, regular rate and rhythm Gastrointestinal: soft Results Result Diagram: 06/03/16 0448 06/04/16 0433 Medications Medications Current Medications Dextrose/Sodium Chloride (D5-NS) 1,000 ml @ 70 mls/hr [id number] IV Last administered on 06/05/16 05:06; Admin Dose 70 MLS/HR; Start 06/02/16 at 03:30 Acetaminophen (Tylenol Supp) 325 mg Q6H PRN [place] pain, fever; Start 06/02/16 at 03:30 Morphine Sulfate (morphine) 2 mg Q4H PRN IV pain Last administered on 14:01; Admin Dose 2 MG; Start 06/02/16 at 03:30 Morphine Sulfate (morphine) 4 mg Q4H PRN IV pain Last administered on 05:06; Admin Dose 4 MG; Start 06/02/16 at 03:30 Ondansetron HCl (Zofran Inj) 4 mg Q6H PRN IV NAUSEA AND/OR VOMITING; Start at 03:30 Nicotine (Nicoderm 21 Mg/ 24hr) 1 patch DAILY TRANSDERM Last administered on 09:09; Admin Dose 1 PATCH; Start 06/02/16 at 14:00 IV Flush (NS 10 ml) 10 ml PRN PRN IV IV PROTOCOL; Start 06/02/16 at 20:00 Pantoprazole (Protonix Tab) 40 mg DAILY@06 PO Last administered on 06/05/16 05 :06; Admin Dose 40 MG; Start 06/04/16 at 06:00 Clonidine (Catapres) 0.1 mg TID PRN PO ELEVATED BLOOD PRESSURE Last administered on 06/03/16 22:25; Admin Dose 0.1 MG; Start 06/03/16 at 14:00 Trazodone HCl (Desyrel) 50 mg HS PO Last administered on 06/04/16 21:41; Admin Dose 50 MG; Start 06/03/16 at 21:00 Sertraline HCl (Zoloft) 100 mg DAILY PO Last administered on 06/05/16 09:10; Admin Dose 100 MG; Start 06/04/16 at 09:00 Hydralazine HCl (Apresoline) 10 mg Q6H PRN IV ELEVATED SYSTOLIC BP Last administered on 06/04/16 19:30; Admin Dose 10 MG; Start 06/03/16 at 23:30 Diphenhydramine HCl (Benadryl) 25 mg BID PRN PO ITCHING Last administered on 21:41; Admin Dose 25 MG; Start 06/04/16 at 21:00 Quetiapine Fumarate (Seroquel) 100 mg HS PO Last administered on 06/04/16 21: 41; Admin Dose 100 MG; Start 06/04/16 at 21:00 PAYTON KELLER Jun 05, 2016 15:30
--- NOTE | 2016-06-05 17:28 | PDOCDIS ---
Discharge Instructions CONDITION Patient Condition: Stable HOME CARE INSTRUCTIONS: Special Diet: N/A ACTIVITY: Activity Restrictions: Slowly Increase Activity FOLLOW UP/APPOINTMENTS Appointments f/u own pcp [address] salvador acosta [address] pelaez for ercp out pt 2 wks for stent removal see dr meade 2 wks RORY ANGULO MD Jun 05, 2016 17:28
[2016-06-05] MEDS ORDERED: PANT40TA4 PO (17:31)
[2016-06-05] MEDS: morphine 2 MG INJ IV PRN (18:43)
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
--- NOTE | 2016-06-05 20:40 | PN ---
Date/Time of Note Date/Time of Note DATE: 06/05/16 TIME: 20:40 Assessment/Plan VTE Prophylaxis VTE Prophylaxis Intervention: other Lines/Catheters IV Catheter Type (from Nrs): Urinary Cath still in place: No Assessment/Plan Chief Complaint/Hosp Course IMPRESSION: Sternal fracture without trauma. RECOMMENDATIONS: No signs of any extravasation or bleeding. No signs of any great vessel injury. Would continue medical management, pain management, pulmonary toilet. Problems: Subjective 24 Hr Interval Summary Gastrointestinal: no complaints Genitourinary: no complaints Musculoskeletal: no complaints Skin: no complaints Neurologic: no complaints Exam/Review of Systems Vital Signs Vitals Vital Signs Date Time Temp Pulse Resp B/P Pulse Ox O2 Delivery O2 Flow Rate FiO2 06/05/16 08:19 99.1 86 20 148/70 92 06/03/16 23:52 Room Air Intake and Output 06/04/16 06/04/16 06/05/16 15:00 23:00 07:00 Intake Total 350 ml 1970 ml 1640 ml Output Total 1500 ml Balance 350 ml 1970 ml 140 ml Exam Neck: non-tender, supple Respiratory: clear to auscultation, normal air movement Cardiovascular: nl pulses, regular rate and rhythm Gastrointestinal: nl liver, spleen, non-tender, soft Results Result Diagram: 06/03/16 0448 06/04/16 0433 Medications Medications Current Medications Dextrose/Sodium Chloride (D5-NS) 1,000 ml @ 70 mls/hr [id number] IV Last administered on 06/05/16 05:06; Admin Dose 70 MLS/HR; Start 06/02/16 at 03:30 Acetaminophen (Tylenol Supp) 325 mg Q6H PRN [place] pain, fever; Start 06/02/16 at 03:30 Morphine Sulfate (morphine) 2 mg Q4H PRN IV pain Last administered on 18:43; Admin Dose 2 MG; Start 06/02/16 at 03:30 Morphine Sulfate (morphine) 4 mg Q4H PRN IV pain Last administered on 05:06; Admin Dose 4 MG; Start 06/02/16 at 03:30 Ondansetron HCl (Zofran Inj) 4 mg Q6H PRN IV NAUSEA AND/OR VOMITING; Start at 03:30 Nicotine (Nicoderm 21 Mg/ 24hr) 1 patch DAILY TRANSDERM Last administered on 09:09; Admin Dose 1 PATCH; Start 06/02/16 at 14:00 IV Flush (NS 10 ml) 10 ml PRN PRN IV IV PROTOCOL; Start 06/02/16 at 20:00 Pantoprazole (Protonix Tab) 40 mg DAILY@06 PO Last administered on 06/05/16 05 :06; Admin Dose 40 MG; Start 06/04/16 at 06:00 Clonidine (Catapres) 0.1 mg TID PRN PO ELEVATED BLOOD PRESSURE Last administered on 06/03/16 22:25; Admin Dose 0.1 MG; Start 06/03/16 at 14:00 Trazodone HCl (Desyrel) 50 mg HS PO Last administered on 06/04/16 21:41; Admin Dose 50 MG; Start 06/03/16 at 21:00 Sertraline HCl (Zoloft) 100 mg DAILY PO Last administered on 06/05/16 09:10; Admin Dose 100 MG; Start 06/04/16 at 09:00 Hydralazine HCl (Apresoline) 10 mg Q6H PRN IV ELEVATED SYSTOLIC BP Last administered on 06/04/16 19:30; Admin Dose 10 MG; Start 06/03/16 at 23:30 Diphenhydramine HCl (Benadryl) 25 mg BID PRN PO ITCHING Last administered on 21:41; Admin Dose 25 MG; Start 06/04/16 at 21:00 Quetiapine Fumarate (Seroquel) 100 mg HS PO Last administered on 06/04/16 21: 41; Admin Dose 100 MG; Start 06/04/16 at 21:00 ADRCIE ROBINS MD Jun 05, 2016 20:40
[2016-06-05 20:48] VITALS: BP 148/74; RESP 18
== END 2016-06-05 21:25 | disposition home or self-care (01) | DRG 183 ==
LOC: E/R 17:19 → MS1 22:53 → OBSVTOIN 06-03 10:56
PROVIDERS: ADMIT Internal Medicine Nephrology; ATTEND Internal Medicine Nephrology
PROC: 02HV33Z Insertion of Infusion Device into Superior Vena Cava, Percutaneous Approach (ICD-10-PCS; principal; 2016-06-02)
DX: S22.22XA Fracture of body of sternum, initial encounter for closed fracture (principal); K83.1 Obstruction of bile duct; M48.54XA Collapsed vertebra, not elsewhere classified, thoracic region, initial encounter for fracture; F17.210 Nicotine dependence, cigarettes, uncomplicated; Z95.5 Presence of coronary angioplasty implant and graft; X50.9XXA Other and unspecified overexertion or strenuous movements or postures, initial encounter; I10 Essential (primary) hypertension; M81.0 Age-related osteoporosis without current pathological fracture; M48.54XD Collapsed vertebra, not elsewhere classified, thoracic region, subsequent encounter for fracture with routine healing
CPT/HCPCS: 36569; 71010; 71250; 76937; 80053; 82378; 83690; 84484; 85025; 85610; 85730; 86301; 93005; C9113; G0378; J0360; J2270; J7042

== ENCOUNTER 2017-02-27 18:15 | Inpatient (IN) | payer OTHER ==
[~2017-02-27] VITALS: Ht 180.3 cm; Wt 61.0 kg
[~2017-02-27 18:15] MED LIST changes: +ACAM333T7 PO; -ACET325T33 PO; -BISA-57 PO; -CEPH250S33 PO; -DOCU-144 PO; +PANT40TA4 PO; +QUET100T32 PO; -SPIR50TA PO; +TRAZ50TA18 PO
[2017-02-27] MEDS ORDERED: FUROSEMIDE 40 MG INJ IV STA (18:35)
[2017-02-27] MEDS ORDERED: NITROGLYCERIN 2% 1 GM OINT PKT TD STA (18:35)
[2017-02-27] MEDS ORDERED: ASPIRIN 81 MG TAB PO STA (18:35)
[2017-02-27] MEDS ORDERED: NITROGLYCERIN (SL) 0.4 MG TAB SL PRN ×2 (19:00→21:30)
[2017-02-27 19:50] LABS: BASOPHILS % 0.4 % (0.0-2.0); EOSINOPHILS # 0.1 10^3/ul (0.0-0.5); EOSINOPHILS % 1.3 % (0.0-7.0); HEMATOCRIT 27.8 % (42.0-52.0); HEMOGLOBIN 9.7 g/dl (14.0-18.0); LYMPHOCYTES % 10.6 % (15.0-51.0); MEAN CORPUSCULAR HEMOGLOBIN 34.3 pg (29.0-33.0); MEAN CORPUSCULAR HGB CONC 34.9 g/dl (32.0-37.0); MEAN CORPUSCULAR VOLUME 98.2 fl (82.0-101.0); MONOCYTE # 0.7 10^3/ul (0.3-0.9); MONOCYTES % 7.8 % (0.0-11.0); NEUTROPHIL # 7.2 10^3/ul (1.6-7.5); NEUTROPHILS % 79.6 % (39.0-77.0); POSITIVE DIFF @See below; RED BLOOD COUNT 2.83 10^6/ul (4.70-6.10); RED CELL DISTRIBUTION WIDTH 16.6 % (11.5-14.5); WHITE BLOOD COUNT 9.1 10^3/ul (4.8-10.8)
[2017-02-27 19:58] LABS: PLATELET COUNT 148 10^3/UL (140-415)
[2017-02-27 20:06] LABS: ANION GAP 10 (8-16); BLOOD UREA NITROGEN 17 mg/dl (7-20); CARBON DIOXIDE 22 mmol/L (21-31); CHLORIDE 107 mmol/L (97-110); CREATININE 0.68 mg/dl (0.61-1.24); GLUCOSE 106 mg/dl (70-220); SODIUM 135 mmol/L (135-144)
[2017-02-27 20:18] LABS: TROPONIN-I < 0.012 ng/ml (0.00-0.12)
[2017-02-27] MEDS ORDERED: ONDANSETRON 4 MG INJ IV PRN (20:30)
[2017-02-27] MEDS ORDERED: ACETAMINOPHEN 325 MG TAB PO PRN ×2 (20:30→21:30)
--- NOTE | 2017-02-27 20:59 | RADRPT ---
PROCEDURE: XR Chest. CLINICAL INDICATION: Chest pain. TECHNIQUE: AP Portable chest. COMPARISON: 06/02/2016 FINDINGS: There is mild cardiomegaly. Diffuse increased interstitial opacities , especially at the lung bases are unchanged. The osseous structures are unremarkable. IMPRESSION: Stable prominent interstitial opacities possibly due to edema or a fibrotic process. RPTAT: HIKT .Avel Mendes MD, MD Date Time Electronically viewed and signed by .Avel Mendes MD, on 02/27/2017 20:59 .T/
[2017-02-27] MEDS ORDERED: FUROSEMIDE 20 MG TAB PO ONE (21:00)
[2017-02-27] MEDS ORDERED: ONDANSETRON 4 MG TAB PO PRN (21:30)
[2017-02-27] MEDS ORDERED: NACL 0.9% 3 ML SYG IV SCH (21:30)
[2017-02-27] MEDS ORDERED: BISACODYL (EC) 5 MG TAB PO PRN (21:30)
[2017-02-27] MEDS ORDERED: DOCUSATE SODIUM 100 MG CAP PO PRN (21:30)
--- NOTE | 2017-02-27 21:43 | ERD ---
ER Documentation Chief Complaint Chief Complaint chest pain , sob since last night , b/l leg swelling x 1 week HPI Patient is a 66-year-old male with hypertension and coronary disease who presents with leg swelling. He said that he has bilateral leg swelling says " my legs have increased in size 2 times normal in the past 1 week". He feels pressure in his chest and says that he cannot walk across the room without becoming short of breath. He does not use home oxygen. He said the swelling in his legs go all the way up into his groin. Upon review of old medical records this is the patient's fifth visit to the ER since 2007. ROS All systems reviewed and are negative except as per history of present illness. Medications Home Meds Active Scripts Pantoprazole* (Pantoprazole*) 40 Mg Tablet., 40 MG PO DAILY@06 for 14 Days Prov:RORY ANGULO MD 06/05/16 Reported Medications Acamprosate (Acamprosate Calcium) 333 Mg Tablet., 666 MG PO TID, TAB 06/01/16 Sertraline Hcl* (Sertraline Hcl*) 100 Mg Tablet, 100 MG PO QAM, #30 TAB 06/01/16 Trazodone Hcl* (Trazodone Hcl*) 50 Mg Tablet, 50 MG PO QHS, #30 TAB 06/01/16 Quetiapine Fumarate* (Quetiapine Fumarate*) 100 Mg Tablet, 100 MG PO HS, TAB 06/01/16 Allergies Allergies: Coded Allergies: No Known Allergy (Unverified , 06/01/16) PMhx/Soc Anesthesia Reaction: No Hx Neurological Disorder: No Hx Respiratory Disorders: No Hx Cardiac Disorders: Yes Hx Psychiatric Problems: No (Bi polar) Hx Miscellaneous Medical Probl: Yes (Hep C) Hx Alcohol Use: Yes Hx Substance Use: Yes Hx Tobacco Use: Yes Smoking Status: Current every day smoker FmHx Family History: coronary disease Physical Exam Vitals Vital Signs Date Time Temp Pulse Resp B/P Pulse Ox O2 Delivery O2 Flow Rate FiO2 02/27/17 20:54 Nasal Cannula 2 02/27/17 20:50 98.1 89 18 127/85 96 Nasal Cannula 2.0 02/27/17 18:20 99.2 108 20 132/88 94 Physical Exam Const: Moderate distress secondary to shortness of breath Head: Atraumatic Eyes: Normal Conjunctiva ENT: Normal External Ears, Nose and Mouth. Neck: Full range of motion..~ No meningismus. Resp: Crackles in the bases bilaterally Cardio: Regular rate and rhythm, no murmurs Abd: Soft, non tender, non distended. Normal bowel sounds Skin: No petechiae or rashes Back: No midline or flank tenderness Ext: 4+ pitting edema to the bilateral lower extremities up to the groin Neur: Awake and alert Psych: Normal Mood and Affect Result Diagram: 02/27/17192902/27/171929 Results 24 hrs Laboratory Tests Test 02/27/17 19:30 White Blood Count 9.110^3/ul Red Blood Count 2.8310^6/ul Hemoglobin 9.7g/dl Hematocrit 27.8% Mean Corpuscular Volume 98.2fl Mean Corpuscular Hemoglobin 34.3pg Mean Corpuscular Hemoglobin Concent 34.9g/dl Red Cell Distribution Width 16.6% Platelet Count 09949^3/UL Mean Platelet Volume 10.0fl Neutrophils % 79.6% Lymphocytes % 10.6% Monocytes % 7.8% Eosinophils % 1.3% Basophils % 0.4% Nucleated Red Blood Cells % 0.0/100WBC Neutrophils # 7.210^3/ul Lymphocytes # 1.010^3/ul Monocytes # 0.710^3/ul Eosinophils # 0.110^3/ul Basophils # 0.010^3/ul Nucleated Red Blood Cells # 0.010^3/ul Sodium Level 135mmol/L Potassium Level 4.0mmol/L Chloride Level 107mmol/L Carbon Dioxide Level 22mmol/L Anion Gap 10 Blood Urea Nitrogen 17mg/dl Creatinine 0.68mg/dl Glucose Level 106mg/dl Calcium Level 8.0mg/dl Troponin I < 0.012ng/ml Current Medications Medications (Trade) Dose Ordered Sig/Jesu Route PRN Reason Start Time Stop Time Status Last Admin Dose Admin Aspirin (Aspirin) 162 mg ONCE STAT PO 02/27/17 18:35 02/27/17 18:37 DC 02/27/17 21:10 Nitroglycerin (Nitroglycerin 2% Oint) 1 inch ONCE STAT TD 02/27/17 18:35 02/27/17 18:37 DC 02/27/17 18:35 Nitroglycerin (Nitroglycerin (Sl Tab) 0.4 Mg) 1 tab Q5M UP TO 3 DOSES PRN SL CHEST PAIN 02/27/17 19:00 Furosemide (Lasix) 40 mg ONCE STAT IV 02/27/17 18:35 02/27/17 18:37 DC Ondansetron HCl (Zofran Inj) 4 mg ER BRIDGE PRN IV NAUSEA AND/OR VOMITING 02/27/17 20:30 02/28/17 20:29 Acetaminophen (Tylenol Tab) 650 mg ER BRIDGE PRN PO MILD PAIN/FEVER 02/27/17 20:30 02/28/17 20:29 Furosemide (Lasix) 80 mg ONCE ONCE PO 02/27/17 21:00 02/27/17 21:01 DC IV Flush (NS 3 ml) 3 ml PER PROTOCOL IV 02/27/17 21:30 Ondansetron HCl (Zofran Tab) 4 mg Q6H PRN PO NAUSEA AND/OR VOMITING 02/27/17 21:30 Nitroglycerin (Nitroglycerin (Sl Tab) 0.4 Mg) 1 tab Q5M PRN SL CHEST PAIN 02/27/17 21:30 Acetaminophen (Tylenol Tab) 650 mg Q6H PRN PO PAIN LEVEL 1-3 OR FEVER 02/27/17 21:30 Docusate Sodium (Colace) 100 mg Q12H PRN PO CONSTIPATION 02/27/17 21:30 Bisacodyl (Dulcolax) 5 mg DAILY PRN PO CONSTIPATION 02/27/17 21:30 Procedures/MDM EKG read by me: Rate/Rhythm: Sinus tachycardia at a rate of 104 Intervals: Normal Impression: Sinus tachycardia without ischemia PROCEDURE: XR Chest. CLINICAL INDICATION: Chest pain. TECHNIQUE: AP Portable chest. COMPARISON: 06/02/2016 FINDINGS: There is mild cardiomegaly. Diffuse increased interstitial opacities , especially at the lung bases are unchanged. The osseous structures are unremarkable. IMPRESSION: Stable prominent interstitial opacities possibly due to edema or a fibrotic process. RPTAT: HIKT .Avel Mendes MD, MD Date Time Electronically viewed and signed by .Avel Mendes MDMD on 02/27/2017 20:59 Smoking Cessation Therapy: Pt. was lectured for greater than 3 minutes on the health risks of continued smoking and the benefits of cessation. Patient is a 66-year-old male who presents with what appears to be acute congestive heart failure exacerbation. He has crackles in his lungs as well as bilateral leg swelling up to his groin. He said that he has never had CHF before. The patient was given aspirin, nitroglycerin, and Lasix IV. He will be admitted to the care of Dr. Hawley from the panel team to a telemetry bed. I do believe that inpatient admission is appropriate as he could not be managed as an outpatient level of care at this time. Departure Diagnosis: Primary Impression: Anasarca Additional Impressions: Acute CHF Congestive heart failure type: unspecified congestive heart failure type Qualified Code: I50.9 - Acute congestive heart failure, unspecified congestive heart failure type Anemia Anemia type: unspecified type Qualified Code: D64.9 - Anemia, unspecified type Condition: FABIANO Espinoza MD Feb 27, 2017 21:43
[2017-02-27 23:16] LABS: ALBUMIN 2.3 g/dl (3.3-4.9); BILIRUBIN,INDIRECT 0.5 mg/dl (0-1.1); BILIRUBIN,TOTAL 0.5 mg/dl (0.2-1.3)
--- NOTE | 2017-02-27 23:52 | HP ---
Date/Time of Note Date/Time of Note DATE: 02/27/17 TIME: 23:51 Assessment/Plan VTE Prophylaxis VTE Prophylaxis Intervention: SCD's Lines/Catheters IV Catheter Type (from Nrs): Mid Line Assessment/Plan Chief Complaint/Hosp Course This is a 66-year-old male being admitted to the telemetry floor for: #1 Shortness of breath: This likely could be multifactorial secondary to CHF and liver cirrhosis and pulmonary fibrosis. BNP level was in the 2000 range. At the current time I will order an echocardiogram, will trend cardiac enzymes. Will also order right upper quadrant ultrasound. I will provide him aggressive diuresis with albumin and Lasix. Will monitor urine output and keep patient on strict I's and O's. Will limit fluid intake to 1200 cc. #2 liver cirrhosis: He denies a history of cirrhosis, but it was mentioned in previous documentation. Will order imaging and labs. We will check an ammonia level, patient does not appear to be encephalopathic. Will check a right upper quadrant ultrasound. Will add on LFTs including lipase. I will also be giving him aggressive diuresis as per #1. History of of TIPS procedure and had a biliary stent, gastric varices. May need GI consultation depending on the patient's clinical course and laboratory results. Will also check coags. He does not report any recent drinking. I will check an ethanol level nonetheless. #3 extensive bilateral lower extremity edema: likely multifactorial in the setting of liver cirrhosis and/ or CHF and/or vascular etiology. At the current time will work up as per #1 and #2. Consider vascular surgery consult if indicated. #4 elevated BNP: BNP was above 2000. Will check an echocardiogram. Patient does have a history of coronary disease. Consult cardiology. #5 History of hepatitis C: We will check serology, and lfts. #6 history of chronic pancreatitis: We will check a lipase, though I do not anticipate this being that elevated given the chronicity of this nature. Patient though is not reporting any abdominal pain either. #7 Interstitial fibrosis: Patient apparently has a history of interstitial fibrosis based on previous medical records as well as on the chest x-ray. This could be contributing at this time to his shortness of breath. Nonetheless as he does have an elevated BNP will also be working him up for heart failure as per #3. #7 #8 coronary disease: Patient has a history of an HI and had a cardiac stent in the past. Currently is not on any cardiac medications. Will consult cardiology. Echocardiogram has been ordered as per #3. #9 DVT GI prophylaxis: SCDs, home PPI. Further treatment strategy will be implemented as per the clinical course Problems: HPI/ROS Admit Date/Time Admit Date/Time Hx of Present Illness Chief complaint: Lower extremity swelling 1 week Patient is a 66-year-old male with hypertension and coronary disease who presents with leg swelling. Of note patient also is a poor historian. He said that he has bilateral leg swelling says "my legs have increased in size 2 times normal in the past 1 week". He feels pressure in his chest and says that he cannot walk across the room without becoming short of breath. Patient states he also has a history of hepatitis C but has not been treated for it. He denies any history of cirrhosis however on his medical record there is mention of this. He will does report that he has a history of chronic pancreatitis. Allergies: NKDA Medications: See MAR ROS Const: As per HPI Eyes : No pain discharge or redness or change in visual acuity ENT: No pain, sore throat, congestion, congestion, dysphagia or discharge Respiratory: As per HPI Cardiovascular: As per HPI GI : no change in appetite, abdominal pain, nausea, vomiting, diarrhea, constipation, or change in the color his stool Genitourinary: No dysuria, hematuria, flank pain , discharge or CVA tenderness Musculoskeletal: As per HPI Skin: As per HPI Neuro: No headache, dizziness, syncope, seizure, focal weakness Endocrine: No polyuria, polydipsia, temperature intolerance Psych: No hallucination, depression, anxiety or suicidal ideation PMH/Family/Social Past Medical History hx of chronic pancreatitis, hx of pancreatic cyst, TIPS procedure, Hep C, CAD, HI, history of gastric varices, ERCP status post stent, interstitial fibrosis, history of cirrhosis Past Surgical History TIPS procedure, cardiac stent x 1, ERCP status post stent Social History Alcohol Use: occasionally (previous heavy drinker, cut back 10 months ago. Now states he drinks once a week) Smoking Status: Current every day smoker (1/2 ppd x 50 years) Exam/Review of Systems Vital Signs Vitals Vital Signs Date Time Temp Pulse Resp B/P Pulse Ox O2 Delivery O2 Flow Rate FiO2 02/27/17 22:05 73 18 135/77 97 Nasal Cannula 2.0 02/27/17 20:50 98.1 Exam Exam General: Patient is lying in bed in no acute distress HEENT: Atraumatic, normocephalic. The pupils are equal, round and reactive. Extraocular motor are intact Neck: Supple with full range of motion. No rigidity or meningismus Chest: Nontender Lungs: Clear to auscultation bilaterally no crackles rales or wheezing Heart: Normal S1-S2, Regular rhythm and rate during my encounter no overt murmurs appreciated Abdomen: Soft, nontender, no overt ascites appreciated, surgical scars present Extremities: Bilateral 3+ pitting edema extending from the feet all the way up to the bilateral upper thighs Neurologic: Normal mental status, speech normal, cranial nerves II through XII are intact, motor and sensory are intact, no focal weakness Skin: Multiple tattoos, Bilateral 3+ pitting edema extending from the feet all the way up to the bilateral upper thighs, chronic skin changes at the bilateral reddy Additional Comments PROCEDURE: XR Chest. CLINICAL INDICATION: Chest pain. TECHNIQUE: AP Portable chest. COMPARISON: 06/02/2016 FINDINGS: There is mild cardiomegaly. Diffuse increased interstitial opacities , especially at the lung bases are unchanged. The osseous structures are unremarkable. IMPRESSION: Stable prominent interstitial opacities possibly due to edema or a fibrotic process. RPTAT: HIKT .Avel Mendes MD, MD Date Time Electronically viewed and signed by .Avel Mendes MD, MD on 02/27/2017 20:59 .T/ CC: FABIANO ANDRE MD EKG read by me: Rate/Rhythm: Sinus tachycardia at a rate of 104 Intervals: Normal Impression: Sinus tachycardia without ischemia Above as per ED physician documentation Labs Result Diagram: 02/27/17192902/27/171929 Medications Medications Current Medications Ondansetron HCl (Zofran Tab) 4 mg Q6H PRN PO NAUSEA AND/OR VOMITING; Start at 21:30 Nitroglycerin (Nitroglycerin (Sl Tab) 0.4 Mg) 1 tab Q5M PRN SL CHEST PAIN; Start 02/27/17 at 21:30 Acetaminophen (Tylenol Tab) 650 mg Q6H PRN PO PAIN LEVEL 1-3 OR FEVER; Start 02/27/17 at 21:30 Docusate Sodium (Colace) 100 mg Q12H PRN PO CONSTIPATION; Start 02/27/17 at 21 :30 Bisacodyl (Dulcolax) 5 mg DAILY PRN PO CONSTIPATION; Start 02/27/17 at 21:30 DAVIDE CHINCHILLA Feb 27, 2017 23:52
[2017-02-28] VITALS (11 sets, daily range): BP systolic 117–141; BP diastolic 63–77; PULSE 80–101; RESP 18–19; TEMP 98.3; Ht 180.3 cm; Wt 61.0 kg
[2017-02-28] MEDS: ALBUMIN HUMAN 25% 100 ML IV SCH ×2 (00:22→01:40)
[2017-02-28 01:35] LABS: CREATINE KINASE 83 IU/L (23-200)
[2017-02-28 01:49] LABS: CK-MB 5.35 ng/ml (0.0-2.4); TROPONIN-I < 0.012 ng/ml (0.00-0.12)
[2017-02-28] MEDS ORDERED: FUROSEMIDE 40 MG INJ IV SCH (06:00)
[2017-02-28 08:25] LABS: HAAIG REFLEX REFLEX FILED
[2017-02-28 08:29] LABS: BASOPHIL # 0.1 10^3/ul (0.0-0.1); BASOPHILS % 0.9 % (0.0-2.0); EOSINOPHILS # 0.2 10^3/ul (0.0-0.5); EOSINOPHILS % 2.8 % (0.0-7.0); HEMOGLOBIN 8.6 g/dl (14.0-18.0); LYMPHOCYTES % 16.6 % (15.0-51.0); MEAN CORPUSCULAR HEMOGLOBIN 34.7 pg (29.0-33.0); MEAN CORPUSCULAR HGB CONC 34.4 g/dl (32.0-37.0); MEAN CORPUSCULAR VOLUME 100.8 fl (82.0-101.0); MEAN PLATELET VOLUME 9.6 fl (7.4-10.4); MONOCYTE # 0.6 10^3/ul (0.3-0.9); MONOCYTES % 10.3 % (0.0-11.0); NEUTROPHILS % 68.7 % (39.0-77.0); PLATELET COUNT 154 10^3/UL (140-415); RED BLOOD COUNT 2.48 10^6/ul (4.70-6.10); RED CELL DISTRIBUTION WIDTH 16.8 % (11.5-14.5); WHITE BLOOD COUNT 5.8 10^3/ul (4.8-10.8)
[2017-02-28 08:54] LABS: CREATINE KINASE 67 IU/L (23-200)
[2017-02-28 08:56] LABS: ALBUMIN 2.5 g/dl (3.3-4.9); ALBUMIN/GLOBULIN RATIO 0.54; BILIRUBIN,INDIRECT 0.8 mg/dl (0-1.1); BILIRUBIN,TOTAL 0.8 mg/dl (0.2-1.3); CALCIUM 8.1 mg/dl (8.4-10.2); CHOL/HDL RATIO 3.8 RATIO; CREATININE 0.76 mg/dl (0.61-1.24); POTASSIUM 3.2 mmol/L (3.5-5.1); TOTAL PROTEIN 7.1 g/dl (6.1-8.1)
[2017-02-28 09:27] LABS: THYROID STIMULATING HORMONE 4.96 MIU/L (0.465-4.680); TROPONIN-I < 0.012 ng/ml (0.00-0.12)
[2017-02-28 09:40] LABS: HEPATITIS B CORE ANTIBODY REACTIVE (NEGATIVE)
[2017-02-28 09:42] LABS: HEPATITIS B CORE ANTIBODY REACTIVE (NEGATIVE)
[2017-02-28] MEDS ORDERED: POTASSIUM CHLORIDE (SR) 20 MEQ TAB PO STA (12:29)
[2017-02-28] MEDS ORDERED: POTASSIUM CHLORIDE 250 ML IVPB ONE (12:30)
[2017-02-28] MEDS: POLYETHYLENE GLYCOL 17 GM PACKET PO SCH (12:30)
--- NOTE | 2017-02-28 14:07 | PN ---
Date/Time of Note Date/Time of Note DATE: 02/28/17 TIME: 14:01 Assessment/Plan VTE Prophylaxis VTE Prophylaxis Intervention: heparin Lines/Catheters IV Catheter Type (from Nrs): Mid Line Urinary Cath still in place: No Assessment/Plan Chief Complaint/Hosp Course 66 male with pulmonary fibrosis, COPD, tobacco use d/o, opiate use d/o on methadone who presents with pain in his b/l legs and dyspnea on exertion Exertional dyspnea likely related to emphysmea, pulmonary hypertension and anemia. There is perhaps an element of CHF as well, need to investigate with TTE. - Continue diuresis for now with 20 IV lasix BID with care as may simply be venous insufficiency edema COPD: - Start symbicort Venous stasis dermatitis: - Hydrocortisone cream and topical moisturizer to b/l legs Anemia - Check iron stores Chart mentinos h/o cirrohsis but normal liver on recent MR Opiate use d/o: - Can conitnue 40 mg daily though patient says he wants to come off completely Knee pain: - Concerning for OA, check XR Discharge plan pending diagnostic workup, much of which can be comleted as outpatient Problems: Subjective 24 Hr Interval Summary Free Text/Dictation Feeling ok today Major concern is pain in his b/l knees, SOB with exertion Exam/Review of Systems Vital Signs Vitals Vital Signs Date Time Temp Pulse Resp B/P Pulse Ox O2 Delivery O2 Flow Rate FiO2 02/28/17 12:52 80 02/28/17 11:51 98.0 18 135/77 98 02/28/17 02:35 Room Air 02/28/17 00:00 2.0 Intake and Output 02/27/17 02/27/17 02/28/17 15:00 23:00 07:00 Output Total 200 ml Balance -200 ml Exam ++ JVD Cachectic appearing Lungs clear RRR Abdomen distended, a bit firm but no pain Legs with b/l edema and marked venous stasis dermitis b/l Results Result Diagram: 02/28/17 0751 02/28/17 0751 Results 24 hrs Laboratory Tests Test 02/27/17 19:30 02/28/17 00:35 02/28/17 07:51 02/28/17 09:00 White Blood Count 9.1 # 5.8 # Red Blood Count 2.83 L 2.48 L Hemoglobin 9.7 L 8.6 L Hematocrit 27.8 L 25.0 L Mean Corpuscular Volume 98.2 100.8 Mean Corpuscular Hemoglobin 34.3 H 34.7 H Mean Corpuscular Hemoglobin Concent 34.9 34.4 Red Cell Distribution Width 16.6 H 16.8 H Platelet Count 148 # 154 Mean Platelet Volume 10.0 9.6 Neutrophils % 79.6 H 68.7 Lymphocytes % 10.6 L 16.6 Monocytes % 7.8 10.3 Eosinophils % 1.3 2.8 Basophils % 0.4 0.9 Nucleated Red Blood Cells % 0.0 0.0 Neutrophils # 7.2 4.0 Lymphocytes # 1.0 1.0 Monocytes # 0.7 0.6 Eosinophils # 0.1 0.2 Basophils # 0.0 0.1 Nucleated Red Blood Cells # 0.0 0.0 Sodium Level 135 139 Potassium Level 4.0 3.2 L Chloride Level 107 103 Carbon Dioxide Level 22 28 Anion Gap 10 11 Blood Urea Nitrogen 17 17 Creatinine 0.68 0.76 Glucose Level 106 109 Calcium Level 8.0 L 8.1 L Total Bilirubin 0.5 0.8 Direct Bilirubin 0.00 0.00 Indirect Bilirubin 0.5 0.8 Aspartate Amino Transf (AST/SGOT) 74 H 57 H Alanine Aminotransferase (ALT/SGPT) 43 41 Alkaline Phosphatase 405 H 336 H Troponin I < 0.012 < 0.012 < 0.012 B-Type Natriuretic Peptide 2160 H Total Protein 8.0 7.1 Albumin 2.3 L 2.5 L Lipase 89 Gamma Glutamyl Transpeptidase 120 H Ammonia 19 Creatine Kinase 83 67 Creatine Kinase Index 6.4 6.4 Creatinine Kinase MB (Mass) 5.35 H 4.30 H Ethyl Alcohol Level < 10.0 Globulin 4.60 H Albumin/Globulin Ratio 0.54 Triglycerides Level 52 Cholesterol Level 80 L LDL Cholesterol, Calculated 49 HDL Cholesterol 21 L Cholesterol/HDL Ratio 3.8 Thyroid Stimulating Hormone (TSH) 4.960 H Hepatitis A Antibody Total POSITIVE H Hepatitis B Surface Antigen NEGATIVE Hepatitis B Surface Antibody NEGATIVE Hepatitis B Core Total Antibody REACTIVE H Hepatitis C Antibody REACTIVE H Hemoglobin A1c 5.3 Medications Medications Current Medications Ondansetron HCl (Zofran Tab) 4 mg Q6H PRN PO NAUSEA AND/OR VOMITING; Start at 21:30 Nitroglycerin (Nitroglycerin (Sl Tab) 0.4 Mg) 1 tab Q5M PRN SL CHEST PAIN; Start 02/27/17 at 21:30 Acetaminophen (Tylenol Tab) 650 mg Q6H PRN PO PAIN LEVEL 1-3 OR FEVER; Start 02/27/17 at 21:30 Docusate Sodium (Colace) 100 mg Q12H PRN PO CONSTIPATION; Start 02/27/17 at 21 :30 Bisacodyl (Dulcolax) 5 mg DAILY PRN PO CONSTIPATION; Start 02/27/17 at 21:30 Pantoprazole (Protonix Tab) 40 mg DAILY@06 PO ; Start 03/01/17 at 06:00 Quetiapine Fumarate (Seroquel) 100 mg HS PO ; Start 02/28/17 at 21:00 Hydrocortisone (Hydrocortisone 0.5% Cr) 1 applic BID TOP ; Start 02/28/17 at 13 :30 Polyethylene Glycol (Miralax) 17 gm DAILY PO Last administered on 02/28/17t 12 :30; Admin Dose 17 GM; Start 02/28/17 at 12:30 SUHAIL FORD MD Feb 28, 2017 14:07
[2017-02-28] MEDS: HYDROCORTISONE 0.5% 28.35 GM CR TOP SCH ×2 (14:15→20:40)
--- NOTE | 2017-02-28 16:03 | RADRPT ---
PROCEDURE: US Lower extremity Venous. CLINICAL INDICATION: Pain and swelling TECHNIQUE: Multiple sonographic images of the bilateral lower extremity deep venous system was obt ained utilizing grayscale, color-flow, compressive sonography and doppler imaging with augmentation. The images were reviewed on a PACS workstation. COMPARISON: None. FINDINGS: There is normal compressibility and flow within the bilateral common femoral, deep femoral, superfic ial femoral, posterior tibial, peroneal and popliteal veins. IMPRESSION: No sonographic evidence for deep venous thrombosis. RPTAT:AAJJ Physician Ericka Date Time Electronically viewed and signed by Physician Ericka on 02/28/2017 16:02 /
--- NOTE | 2017-02-28 17:41 | RADRPT ---
PROCEDURE: XR Abdomen. CLINICAL INDICATION: Abdominal distension TECHNIQUE: AP abdomen x-ray. COMPARISON: None. FINDINGS: The bowel gas pattern is normal. There is no evidence of obstruction. There are no abnormal calcific ations overlying the urinary tracts. The osseous structures are unremarkable. Postsurgical clips ar e seen in the upper abdomen especially in the right upper quadrant. IMPRESSION: No evidence of bowel dilatation, obstruction or free air. Post surgical clips in the upper abdomen. RPTAT: QQ .Abilio Flood MD, Date Time Electronically viewed and signed by .Abilio Flood MD, on 02/28/2017 17:41 .L/
--- NOTE | 2017-02-28 17:50 | RADRPT ---
PROCEDURE: XR Knees. CLINICAL INDICATION: Pain. TECHNIQUE: Three views of the bilateral knees are available for review. COMPARISON: None available FINDINGS: There is moderate osteoarthritic narrowing seen in the medial compartments of the bilateral knees. T here is no acute fracture, dislocation osteolytic lesion.. No radiopaque foreign body is identified . Alignment is anatomic. No significant joint effusions. IMPRESSION: 1. Moderate osteoarthritic narrowing at the medial compartments of the bilateral knees.. 2. No acute fracture or dislocation is seen. RPTAT: QQ .Abilio Flood MD, MD Date Time Electronically viewed and signed by .Abilio Flood MD, MD on 02/28/2017 17:49 .L/
[2017-02-28] MEDS: FUROSEMIDE 20 MG INJ IV SCH (18:35)
[2017-02-28] MEDS: SALMETEROL/FLUTICASONE 250/50 INHA INH SCH (20:40)
[2017-02-28] MEDS: EUCERIN 113 GM CR TOP SCH (20:40)
[2017-02-28] MEDS: QUETIAPINE 100 MG TAB PO SCH (20:40)
--- NOTE | 2017-02-28 21:17 | CONS ---
DATE OF ADMISSION: 02/27/2017 DATE OF CONSULTATION: REASON FOR EVALUATION: Lower extremity edema. HISTORY OF PRESENT ILLNESS: Mr. Joya is a 66-year-old gentleman with history of hypertension, dyslipidemia, history of hepatitis C, history of prior admissions with cellulitis, who comes to the hospital now for evaluation of lower extremity edema. I have been asked to see the patient in consul tation for further cardiac revaluation. It appears that the patient might be experiencing cirrhosis . There is some lower extremity edema. There is also some abdominal distention. The patient does not experience any shortness of breath at this point. For now, conservative therapy is expected. I think it would be best to diurese the patient gently making sure not to drop his blood pressure. T here is no evidence of hemodynamic instability. For chest pain, for now conservative therapy and ge ntle diuresis are expected. PAST MEDICAL HISTORY: 1. Hypertension. 2. Dyslipidemia. 3. History of cirrhosis. 4. History of mild encephalopathy. 5. History of ____ retention. 6. History of coronary artery disease. 7. History of prior gastric varices with prior history of ERCP with bleeding. ALLERGIES: NONE KNOWN. PAST SURGICAL HISTORY: The patient has a TIPS procedure. SOCIAL HISTORY: History of alcohol use, history of tobacco use, distant history of drug use. CURRENT MEDICATIONS INCLUDE: 1. Pantoprazole 40 mg p.o. once a day. 2. ____ 100 mg p.o. once a day. 3. Furosemide 20 mg 1 p.o. b.i.d. 4. Nitroglycerin 1 tablet p.o. once a day. 5. Docusate. REVIEW OF SYSTEMS: CONSTITUTIONAL: No fevers, no chills, no shortness of breath. HEENT: No changes in vision or hearing. CARDIAC: No chest pain reported now. RESPIRATORY: No shortness of breath. GASTROINTESTINAL: No nausea, vomiting, diarrhea, constipation. GENITOURINARY: No dysuria, hematuria . NEUROLOGIC: No focal neurologic deficit. PSYCHIATRIC: No known history of psychiatric illness. PHYSICAL EXAMINATION: VITAL SIGNS: Temperature is 98.0, heart rate 82, blood pressure 129/73. GENERAL: He is a well-nourished man in no acute distress, alert and oriented x3, aware of his condi tion. HEAD: Normocephalic, atraumatic. EYES: Anicteric. NECK: Supple. JVD 6 to 7 cm. There is no lymphadenopathy, no thyromegaly. HEART: Regular, with soft 1/6 systolic murmur at the apex. PMI is nondisplaced. There is no S3. LUNGS: Coarse at the base. ABDOMEN: Distended, bowel sounds are present. There is no hepatosplenomegaly. : Intact. EXTREMITIES: Show no clubbing or cyanosis. There is edema. DIAGNOSTIC DATA: ECG reviewed by me shows sinus rhythm at the rate of 80s with some nonspecific ST changes. LABORATORY DATA: White blood cell count 5.9, hemoglobin 8.6, platelets 154. INR is 1.15. Sodium 1 39, potassium 3.2, his BUN is 17, creatinine 0.76. Troponin is negative at 0.07. ASSESSMENT AND PLAN: 1. Lower extremity edema: Patient's lower extremity edema, likely more related to cirrhosis than h eart failure exacerbation. For now, conservative therapy is expected. The patient already received some diuresis and appears to be doing well. Will follow up with a 2-D echo. 2. Chest pain. Troponins are negative. We will continue to follow. No evidence of ischemia now. 3. Cirrhosis. Continue to void hepatotoxic medications as tolerated. 4. Chest pain. Troponins are negative, no further examination needed. 5. Hypokalemia. Continue to replace potassium as indicated. 6. History of transjugular intrahepatic portosystemic shunt. Defer to Gastroenterology Team for ev aluation. I would like to thank Dr. Hawley for referring this patient for my evaluation. Dictated By: ALIA VARNER MD ML/YUNI Conf#: [id number] DID#: [id number]
[2017-03-01] VITALS (12 sets, daily range): BP systolic 107–150; BP diastolic 58–79; PULSE 82–95; RESP 17–20
[2017-03-01] MEDS: FUROSEMIDE 20 MG INJ IV SCH ×2 (06:11→18:47)
[2017-03-01] MEDS: PANTOPRAZOLE (EC) 40 MG TAB PO SCH (06:12)
[2017-03-01] MEDS: SALMETEROL/FLUTICASONE 250/50 INHA INH SCH ×2 (08:37→20:59)
[2017-03-01] MEDS: POLYETHYLENE GLYCOL 17 GM PACKET PO SCH (08:37)
[2017-03-01] MEDS: HYDROCORTISONE 0.5% 28.35 GM CR TOP SCH ×2 (08:38→21:00)
[2017-03-01] MEDS: EUCERIN 113 GM CR TOP SCH ×2 (08:38→21:00)
--- NOTE | 2017-03-01 09:08 | RADRPT ---
PROCEDURE: US Abdomen. CLINICAL INDICATION: Abdominal pain TECHNIQUE: Multiple real-time images were acquired of the patient's abdomen and retroperitoneum ut ilizing a high resolution transducer. COMPARISON: None FINDINGS: Visualized portions of the pancreatic head and proximal body are unremarkable. The liver is coarse in echotexture and has a nodular irregular contour suggesting cirrhosis. No focal hepatic masses are identified sonographically. The gallbladder is surgically absent. The common bile duct measures 10.5 mm. This may be normal for the patient's age and status post cholecystectomy. On the previous study, common bile duct measured 12.3 mm. The right kidney measures 10.6 cm in length. The renal cortex is somewhat echogenic suggesting medic al renal disease. There is moderate abdominal ascites. IMPRESSION: 1. The liver is coarse in echotexture and has a nodular irregular contour suggesting cirrhosis. 2. The gallbladder is surgically absent. 3. The common bile duct measures 10.5 mm. This may be normal for the patient's age and status post cholecystectomy. On the previous study from 2016, the common bile duct measured 12.3 mm. 4. Moderate abdominal ascites. 5. The right renal cortex is somewhat echogenic suggesting medical renal disease. RPTAT:AAJJ Physician Ericka Date Time Electronically viewed and signed by Physician Ericka on 03/01/2017 09:07 /
[2017-03-01] MEDS ORDERED: POTASSIUM CHLORIDE 250 ML IVPB ONE (10:00)
--- NOTE | 2017-03-01 12:19 | CONS ---
Date/Time of Note Date/Time of Note DATE: 03/01/17 TIME: 12:13 Assessment/Plan Assessment/Plan Chief Complaint/Hosp Course IMP: 1.CHF 2.LE edema 3.Cirrhosis 4. anemia 5.copd Recc: -Tele -Continue lasix -Will f/u echo -Continue bronchodilators Problems: Consultation Date/Type/Reason Admit Date/Time Feb 27, 2017 at 20:22 Initial Consult Date 02/28/17 Type of Consultation: cardiology Reason for Consultation CHF Referring Provider: ZENON COSTA Exam/Review of Systems Vital Signs Vitals Vital Signs Date Time Temp Pulse Resp B/P Pulse Ox O2 Delivery O2 Flow Rate FiO2 03/01/17 08:08 93 03/01/17 08:00 97.5 17 150/73 92 02/28/17 02:35 Room Air 02/28/17 00:00 2.0 Intake and Output 02/28/17 02/28/17 03/01/17 15:00 23:00 07:00 Intake Total 650 ml 300 ml Output Total 600 ml Balance 50 ml 300 ml Exam Review of Systems: CONSTITUTIONAL: No fevers, chills. PULMONARY: No sob CARDIOVASCULAR: No chest pain/palpitations GASTROINTESTINAL: No nausea/vomiting. GENITOURINARY: No hematuria/dysuria. MUSCULOSKELETAL: No myagias/arthalgias. PSYCHIATRIC: The patient denies depression. NEUROLOGIC: No weakness Constitutional: alert Psych: no complaints Head: normocephalic ENMT: mucosa pink and moist Neck: jvd (9 cm water), supple Respiratory: diminished breath sounds Cardiovascular: regular rate and rhythm Gastrointestinal: non-tender, soft Musculoskeletal: muscle tone (normal) Extremities: pitting pedal edema (bilateral) Neurological: other (No focal deficits) Results Result Diagram: 02/28/17 0751 02/28/17 0751 Medications Medications Current Medications Ondansetron HCl (Zofran Tab) 4 mg Q6H PRN PO NAUSEA AND/OR VOMITING; Start at 21:30 Nitroglycerin (Nitroglycerin (Sl Tab) 0.4 Mg) 1 tab Q5M PRN SL CHEST PAIN; Start 02/27/17 at 21:30 Acetaminophen (Tylenol Tab) 650 mg Q6H PRN PO PAIN LEVEL 1-3 OR FEVER; Start 02/27/17 at 21:30 Docusate Sodium (Colace) 100 mg Q12H PRN PO CONSTIPATION; Start 02/27/17 at 21 :30 Bisacodyl (Dulcolax) 5 mg DAILY PRN PO CONSTIPATION; Start 02/27/17 at 21:30 Pantoprazole (Protonix Tab) 40 mg DAILY@06 PO Last administered on 03/01/17 06:12; Admin Dose 40 MG; Start 03/01/17 at 06:00 Quetiapine Fumarate (Seroquel) 100 mg HS PO Last administered on 02/28/17 20: 40; Admin Dose 100 MG; Start 02/28/17 at 21:00 Hydrocortisone (Hydrocortisone 0.5% Cr) 1 applic BID TOP Last administered on 03/01/17 08:38; Admin Dose 1 APPLIC; Start 02/28/17 at 13:30 Polyethylene Glycol (Miralax) 17 gm DAILY PO Last administered on 02/28/17 12 :30; Admin Dose 17 GM; Start 02/28/17 at 12:30 Multi-Ingredient Ointment (Eucerin Cream) 1 applic BID TOP Last administered on 03/01/17 08:38; Admin Dose 1 APPLIC; Start 02/28/17 at 21:00 Salmeterol Xinafoate/ Fluticasone 1 inh 1 inh BID INH Last administered on 08:37; Admin Dose 1 INH; Start 02/28/17 at 21:00 Potassium Chloride (KCl 40 MEQ/250 ML NS) 250 ml @ 62.5 mls/hr ONCE ONCE IVPB ; Start 03/01/17 at 10:00; Stop 03/01/17 at 13:59 CHERYL WETZEL Mar 01, 2017 12:19
--- NOTE | 2017-03-01 15:19 | RADRPT ---
Echocardiogram Report Patient Name: LIANE ALBA Gender: Male Date: 1950 Study Date: 28-Feb-2017 Plaster Form Maker: DON Location: [id number] Ref. Physician: DAVIDE CHINCHILLA Quality: Good Procedures: Transthoracic echocardiogram with complete 2D, M-Mode, and doppler examination. Indications: Shortness of breath. 2D/M Mode Doppler Measurement Value Normal Ranges Measurement Value Normal Ranges AoR Diam MM 3.4 cm NADJA Vmax 2.1 cm2 LA/Ao MM 1.2 AV Mean Balaji 1.1 m/sec LA Dimen MM 4.1 cm AV Mean PG 5.0 mmHg LVIDd 2D 4.8 3.5 - 5.6 cm AV Peak Balaji 1.4 m/sec LVIDs 2D 3.5 2.1 - 4.1 cm AV Peak PG 8.0 mmHg FS 2D 28.5 % AV VTI 33.5 cm LVPWd 2D 1.1 0.6 - 1.1 cm LVOT Peak Balaji 1.0 m/sec IVSd 2D 1.1 0.6 - 1.1 cm LVOT Peak PG 4.0 mmHg IVS/LVPW 2D 1.1 MV E Peak Balaji 0.8 m/sec EDV 2D 114.0 cm3 MV A Peak Balaji 0.9 m/sec ESV 2D 41.8 cm3 MV E/A 1.0 EF 2D 55.0 50.0 - 65.0 % MV Decel Time 243 msec LVOT Diam 2.0 cm MV E/A 1.0 LVOT Area 3.1 cm2 MR Peak PG 52.0 mmHg MR Peak Balaji 3.6 m/sec TR Peak Balaji 3.8 m/sec TR Peak PG 58.0 mmHg RVSP 61.0 mmHg RA Pressure 3.0 Findings Left Ventricle: Normal left ventricular systolic function. Normal left ventricular cavity size. Normal left ventricular wall thickness. Ejection fraction is visually estimated at 55 %. Tissue Doppler/Mitral Doppler indices are consistent with impaired relaxation (Stage I diastolic dysfunction). Right Ventricle: Normal right ventricular size. Normal right ventricular systolic function. Left Atrium: There is mild enlargement of left atrium. Right Atrium: The right atrium is normal in size. Mitral Valve: Normal appearance of the mitral valve. Mitral valve leaflets appear mildly thickened. Mild mitral valve regurgitation. Aortic Valve: Normal appearance of the aortic valve. No significant aortic stenosis or insufficiency. Thickening of the aortic valve leaflets noted. Tricuspid Valve: Normal appearance of the tricuspid valve. Estimated peak PA systolic pressure 61 mmHg. There is moderate tricuspid regurgitation. Pulmonic Valve: Normal pulmonic valve appearance. There is trace pulmonic regurgitation. Pericardium: Normal pericardium with no significant pericardial effusion. Aorta: Normal aortic root. IVC: Normal size and normal respiratory collapse consistent with normal right atrial pressure. Conclusions 1.Normal left ventricular systolic function. Normal left ventricular cavity size. Normal left ventricular wall thickness. Ejection fraction is visually estimated at 55 %. Tissue Doppler/Mitral Doppler indices are consistent with impaired relaxation (Stage I diastolic dysfunction). 2.There is mild enlargement of left atrium. 3.Normal appearance of the mitral valve. Mitral valve leaflets appear mildly thickened. Mild mitral valve regurgitation. 4.Normal appearance of the tricuspid valve. Estimated peak PA systolic pressure 61 mmHg. There is moderate tricuspid regurgitation. 5.Normal pulmonic valve appearance. There is trace pulmonic regurgitation. Electronically Signed By: Wilfrido Osorio 01-Mar-2017 15:18:41 -0800 Patient Name: LIANE ALBA Study Date: 28-Feb-2017 [id number]
[2017-03-01 15:40] LABS: RETICULOCYTE COUNT % 3.1 % (0.5-1.5)
[2017-03-01 16:05] LABS: IRON 42 ug/dl (35-150)
[2017-03-01 16:14] LABS: TOTAL IRON BINDING CAPACITY 232 ug/dl (241-421)
[2017-03-01] MEDS ORDERED: POTASSIUM CHLORIDE (SR) 20 MEQ TAB PO STA (16:30)
--- NOTE | 2017-03-01 18:04 | PN ---
Date/Time of Note Date/Time of Note DATE: 03/01/17 TIME: 17:55 Assessment/Plan VTE Prophylaxis VTE Prophylaxis Intervention: SCD's Lines/Catheters Urinary Cath still in place: No Assessment/Plan Chief Complaint/Hosp Course 1. Acute respiratory distress secondary to pulmonary fibrosis, emphysema with pulmonary hypertension Patient with history of tobacco use Continue Lasix for now Continue Symbicort Echo shows preserved EF, cardiology following 2. 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 History of opioid abuse On methadone, continue 20 mg daily although patient says he wants to ultimately stop completely 4. Anemia of chronic disease 5. Knee pain secondary to osteo-arthritis as noted on x-ray Pain control Prophylaxis: SCDs Discharge planning: Anticipate DC home tomorrow Problems: Subjective 24 Hr Interval Summary Constitutional: no complaints Exam/Review of Systems Vital Signs Vitals Vital Signs Date Time Temp Pulse Resp B/P Pulse Ox O2 Delivery O2 Flow Rate FiO2 03/01/17 16:37 82 03/01/17 15:37 98.1 18 137/74 92 02/28/17 02:35 Room Air 02/28/17 00:00 2.0 Intake and Output 02/28/17 02/28/17 03/01/17 15:00 23:00 07:00 Intake Total 650 ml 300 ml Output Total 600 ml Balance 50 ml 300 ml Exam Constitutional: alert, oriented Respiratory: clear to auscultation Cardiovascular: regular rate and rhythm Gastrointestinal: soft, No distended Musculoskeletal: nl extremities to inspection Results Result Diagram: 02/28/17 0751 02/28/17 0751 Results 24 hrs Laboratory Tests Test 03/01/17 14:39 03/01/17 14:40 Absolute Reticulocyte Count 0.082 Percent Reticulocyte Count 3.1 H Ferritin 121.0 Vitamin B12 Level 878 Iron Level 42 Total Iron Binding Capacity 232 L Percent Iron Saturation 18 L Medications Medications Current Medications Ondansetron HCl (Zofran Tab) 4 mg Q6H PRN PO NAUSEA AND/OR VOMITING; Start at 21:30 Nitroglycerin (Nitroglycerin (Sl Tab) 0.4 Mg) 1 tab Q5M PRN SL CHEST PAIN; Start 02/27/17 at 21:30 Acetaminophen (Tylenol Tab) 650 mg Q6H PRN PO PAIN LEVEL 1-3 OR FEVER; Start 02/27/17 at 21:30 Docusate Sodium (Colace) 100 mg Q12H PRN PO CONSTIPATION; Start 02/27/17 at 21 :30 Bisacodyl (Dulcolax) 5 mg DAILY PRN PO CONSTIPATION; Start 02/27/17 at 21:30 Pantoprazole (Protonix Tab) 40 mg DAILY@06 PO Last administered on 03/01/17 06:12; Admin Dose 40 MG; Start 03/01/17 at 06:00 Quetiapine Fumarate (Seroquel) 100 mg HS PO Last administered on 02/28/17 20: 40; Admin Dose 100 MG; Start 02/28/17 at 21:00 Hydrocortisone (Hydrocortisone 0.5% Cr) 1 applic BID TOP Last administered on 03/01/17 08:38; Admin Dose 1 APPLIC; Start 02/28/17 at 13:30 Polyethylene Glycol (Miralax) 17 gm DAILY PO Last administered on 02/28/17 12 :30; Admin Dose 17 GM; Start 02/28/17 at 12:30 Multi-Ingredient Ointment (Eucerin Cream) 1 applic BID TOP Last administered on 03/01/17 08:38; Admin Dose 1 APPLIC; Start 02/28/17 at 21:00 Salmeterol Xinafoate/ Fluticasone (Advair 250/50 Diskus) 1 inh BID INH Last administered on 03/01/17 08:37; Admin Dose 1 INH; Start 02/28/17 at 21:00 MONSTER HASSAN Mar 01, 2017 18:04
[2017-03-01] MEDS: QUETIAPINE 100 MG TAB PO SCH (20:58)
[2017-03-02] VITALS (10 sets, daily range): BP systolic 140–156; BP diastolic 70–90; PULSE 87–91; RESP 19
[2017-03-02] MEDS: FUROSEMIDE 20 MG INJ IV SCH (06:00)
[2017-03-02] MEDS: PANTOPRAZOLE (EC) 40 MG TAB PO SCH ×2 (06:00→09:27)
[2017-03-02] MEDS: POLYETHYLENE GLYCOL 17 GM PACKET PO SCH (09:00)
[2017-03-02] MEDS: HYDROCORTISONE 0.5% 28.35 GM CR TOP SCH ×2 (09:24→20:29)
[2017-03-02] MEDS: SALMETEROL/FLUTICASONE 250/50 INHA INH SCH ×2 (09:24→20:29)
[2017-03-02] MEDS: EUCERIN 113 GM CR TOP SCH ×2 (09:24→20:29)
[2017-03-02 10:27] LABS: CALCIUM 8.3 mg/dl (8.4-10.2); CREATININE 0.71 mg/dl (0.61-1.24); MAGNESIUM 1.4 mg/dl (1.7-2.5); PHOSPHORUS 3.4 mg/dl (2.5-4.9); POTASSIUM 4.1 mmol/L (3.5-5.1)
--- NOTE | 2017-03-02 10:59 | CONS ---
Date/Time of Note Date/Time of Note DATE: 03/02/17 TIME: 10:58 Assessment/Plan Assessment/Plan Additional Assessment/Plan 1. Lower extremity edema: Patient's lower extremity edema, likely more related to cirrhosis than heart failure exacerbation. For now, conservative therapy is expected. The patient already received some diuresis and appears to be doing well. BETTER NOW. 2. Chest pain. Troponins are negative. We will continue to follow. No evidence of ischemia now. R/O VA. 3. Cirrhosis. Continue to void hepatotoxic medications as tolerated. 4. Chest pain. Troponins are negative, no further examination needed. 5. Hypokalemia. Continue to replace potassium as indicated. 6. History of transjugular intrahepatic portosystemic shunt. Defer to Gastroenterology Team for evaluation. 7. CHF - diast HF, acute on chronic, remove fluid as tolerated. Consultation Date/Type/Reason Admit Date/Time Feb 27, 2017 at 20:22 Initial Consult Date Type of Consultation: cardiology Referring Provider: ZENON COSTA 24 HR Interval Summary Free Text/Dictation No acute events - BP stable - con't gentle diuresis. ROS: No fever, no chills, no nausea, no vomiting, no diarrhea/constipation No recent weight changes No chest pain, no PND, no orthopnea No dizziness, blurred vision No thirst, no heat or cold intolerance Exam/Review of Systems Vital Signs Vitals Vital Signs Date Time Temp Pulse Resp B/P Pulse Ox O2 Delivery O2 Flow Rate FiO2 03/02/17 08:10 87 03/02/17 07:41 98.1 19 150/90 94 02/28/17 02:35 Room Air 02/28/17 00:00 2.0 Intake and Output 03/01/17 03/01/17 03/02/17 15:00 23:00 07:00 Intake Total 650 ml 200 ml Output Total 450 ml Balance 200 ml 200 ml Exam General: WN/WD/NAD, AOx comfortable HEENT: Unicetric/atraumatic/EOMI (does not follow commands) NECK: JVD elevated, no thyromegaly Lymph: no lymphadenopathy HEART: regular with no S3, II/ systolic murmur at apex LUNGS: Coarse sounds ABD: soft, NT, ND, +BS : Intact Neuro: non focal SKIN: chronic changes EXT: trace edema Results Result Diagram: 02/28/17 0751 03/02/17 0924 Results 24 hrs Laboratory Tests Test 03/01/17 14:39 03/01/17 14:40 03/02/17 09:24 Absolute Reticulocyte Count 0.082 Percent Reticulocyte Count 3.1 H Ferritin 121.0 Vitamin B12 Level 878 Iron Level 42 Total Iron Binding Capacity 232 L Percent Iron Saturation 18 L Sodium Level 137 Potassium Level 4.1 Chloride Level 105 Carbon Dioxide Level 26 Anion Gap 10 Blood Urea Nitrogen 16 Creatinine 0.71 Glucose Level 126 Calcium Level 8.3 L Phosphorus Level 3.4 Magnesium Level 1.4 L Medications Medications Current Medications Ondansetron HCl (Zofran Tab) 4 mg Q6H PRN PO NAUSEA AND/OR VOMITING; Start at 21:30 Nitroglycerin (Nitroglycerin (Sl Tab) 0.4 Mg) 1 tab Q5M PRN SL CHEST PAIN; Start 02/27/17 at 21:30 Acetaminophen (Tylenol Tab) 650 mg Q6H PRN PO PAIN LEVEL 1-3 OR FEVER; Start 02/27/17 at 21:30 Docusate Sodium (Colace) 100 mg Q12H PRN PO CONSTIPATION; Start 02/27/17 at 21 :30 Bisacodyl (Dulcolax) 5 mg DAILY PRN PO CONSTIPATION; Start 02/27/17 at 21:30 Pantoprazole (Protonix Tab) 40 mg DAILY@06 PO Last administered on 03/02/17 09:27; Admin Dose 40 MG; Start 03/01/17 at 06:00 Quetiapine Fumarate (Seroquel) 100 mg HS PO Last administered on 03/01/17 20: 58; Admin Dose 100 MG; Start 02/28/17 at 21:00 Hydrocortisone (Hydrocortisone 0.5% Cr) 1 applic BID TOP Last administered on 03/02/17 09:24; Admin Dose 1 APPLIC; Start 02/28/17 at 13:30 Polyethylene Glycol (Miralax) 17 gm DAILY PO Last administered on 02/28/17 12 :30; Admin Dose 17 GM; Start 02/28/17 at 12:30 Multi-Ingredient Ointment (Eucerin Cream) 1 applic BID TOP Last administered on 03/02/17 09:24; Admin Dose 1 APPLIC; Start 02/28/17 at 21:00 Salmeterol Xinafoate/ Fluticasone (Advair 250/50 Diskus) 1 inh BID INH Last administered on 03/02/17t 09:24; Admin Dose 1 INH; Start 02/28/17 at 21:00 ALIA VARNER MD Mar 02, 2017 10:59
[2017-03-02] MEDS ORDERED: MAGNESIUM SULFATE 4 GM/100 ML 100 ML IVPB ONE (12:00)
--- NOTE | 2017-03-02 18:03 | PN ---
Date/Time of Note Date/Time of Note DATE: 03/02/17 TIME: 18:00 Assessment/Plan VTE Prophylaxis VTE Prophylaxis Intervention: SCD's Lines/Catheters IV Catheter Type (from Nrs): Mid line Urinary Cath still in place: No Assessment/Plan Chief Complaint/Hosp Course 1. Acute respiratory distress secondary to pulmonary fibrosis, emphysema with pulmonary hypertension Patient with history of tobacco use DC Lasix Continue Symbicort Echo shows preserved EF, cardiology following 2. 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 History of opioid abuse and chronic pain On methadone, continue 20 mg daily although patient says he wants to ultimately stop completely Patient states that he continues to have pain when he ambulates, patient does not want to go to a nursing facility 4. Anemia of chronic disease 5. Knee pain secondary to osteo-arthritis as noted on x-ray Pain control 6. Hypomagnesemia Replete Prophylaxis: SCDs Discharge planning: Anticipate DC home tomorrow, patient needs outpatient GI follow-up Problems: Subjective 24 Hr Interval Summary Free Text/Dictation Difficulty walking due to pain in legs Exam/Review of Systems Vital Signs Vitals Vital Signs Date Time Temp Pulse Resp B/P Pulse Ox O2 Delivery O2 Flow Rate FiO2 03/02/17 16:06 89 03/02/17 15:36 98.2 19 156/76 92 02/28/17 02:35 Room Air 02/28/17 00:00 2.0 Intake and Output 03/01/17 03/01/17 03/02/17 15:00 23:00 07:00 Intake Total 650 ml 200 ml Output Total 450 ml Balance 200 ml 200 ml Exam Constitutional: alert Respiratory: clear to auscultation Cardiovascular: regular rate and rhythm Gastrointestinal: soft, No distended Musculoskeletal: No nl extremities to inspection Results Result Diagram: 02/28/17 0751 03/02/17 0924 Results 24 hrs Laboratory Tests Test 03/02/17 09:24 Sodium Level 137 Potassium Level 4.1 Chloride Level 105 Carbon Dioxide Level 26 Anion Gap 10 Blood Urea Nitrogen 16 Creatinine 0.71 Glucose Level 126 Calcium Level 8.3 L Phosphorus Level 3.4 Magnesium Level 1.4 L Medications Medications Current Medications Ondansetron HCl (Zofran Tab) 4 mg Q6H PRN PO NAUSEA AND/OR VOMITING; Start at 21:30 Nitroglycerin (Nitroglycerin (Sl Tab) 0.4 Mg) 1 tab Q5M PRN SL CHEST PAIN; Start 02/27/17 at 21:30 Acetaminophen (Tylenol Tab) 650 mg Q6H PRN PO PAIN LEVEL 1-3 OR FEVER; Start 02/27/17 at 21:30 Docusate Sodium (Colace) 100 mg Q12H PRN PO CONSTIPATION; Start 02/27/17 at 21 :30 Bisacodyl (Dulcolax) 5 mg DAILY PRN PO CONSTIPATION; Start 02/27/17 at 21:30 Pantoprazole (Protonix Tab) 40 mg DAILY@06 PO Last administered on 03/02/17 09:27; Admin Dose 40 MG; Start 03/01/17 at 06:00 Quetiapine Fumarate (Seroquel) 100 mg HS PO Last administered on 03/01/17 20: 58; Admin Dose 100 MG; Start 02/28/17 at 21:00 Hydrocortisone (Hydrocortisone 0.5% Cr) 1 applic BID TOP Last administered on 03/02/17 09:24; Admin Dose 1 APPLIC; Start 02/28/17 at 13:30 Polyethylene Glycol (Miralax) 17 gm DAILY PO Last administered on 02/28/17 12 :30; Admin Dose 17 GM; Start 02/28/17 at 12:30 Multi-Ingredient Ointment (Eucerin Cream) 1 applic BID TOP Last administered on 03/02/17 09:24; Admin Dose 1 APPLIC; Start 02/28/17 at 21:00 Salmeterol Xinafoate/ Fluticasone (Advair 250/50 Diskus) 1 inh BID INH Last administered on 03/02/17 09:24; Admin Dose 1 INH; Start 02/28/17 at 21:00 MONSTER HASSAN Mar 02, 2017 18:03
[2017-03-02] MEDS: QUETIAPINE 100 MG TAB PO SCH (20:28)
[2017-03-03] VITALS: BP 138/70; RESP 19
[2017-03-03 00:22] VITALS: PULSE 93
[2017-03-03] MEDS: HYDROCODONE/APAP (5/325) TAB PO PRN ×2 (00:54→06:32)
[2017-03-03 04:00] VITALS: BP 129/66; RESP 19
[2017-03-03 04:05] VITALS: PULSE 89
[2017-03-03] MEDS: PANTOPRAZOLE (EC) 40 MG TAB PO SCH (06:29)
[2017-03-03 08:12] VITALS: PULSE 86
[2017-03-03 08:16] LABS: CALCIUM 8.1 mg/dl (8.4-10.2); CREATININE 0.68 mg/dl (0.61-1.24); MAGNESIUM 1.9 mg/dl (1.7-2.5); POTASSIUM 3.5 mmol/L (3.5-5.1)
[2017-03-03] MEDS: EUCERIN 113 GM CR TOP SCH (09:04)
[2017-03-03] MEDS: POLYETHYLENE GLYCOL 17 GM PACKET PO SCH (09:04)
[2017-03-03] MEDS: SALMETEROL/FLUTICASONE 250/50 INHA INH SCH (09:04)
[2017-03-03] MEDS: HYDROCORTISONE 0.5% 28.35 GM CR TOP SCH (09:05)
--- NOTE | 2017-03-03 10:05 | PDOCDIS ---
Discharge Instructions CONDITION Patient Condition: Good HOME CARE INSTRUCTIONS: Diet Instructions: Reduced Sodium ACTIVITY: Activity Restrictions: No Restrictions FOLLOW UP/APPOINTMENTS Follow-up Plan F/U WITH YOUR PCP AND A GI SPECIALIST FOR TREATMENT OF HEP C MONSTER HASSAN Mar 03, 2017 10:05
[2017-03-03 12:12] VITALS: PULSE 78
--- NOTE | 2017-03-03 16:55 | DS ---
Date/Time of Note Date/Time of Note DATE: 03/03/17 TIME: 16:49 Discharge Summary Admission/Discharge Info Admit Date/Time Feb 27, 2017 at 20:22 Discharge Date/Time Mar 03, 2017 at 12:30 Discharge Diagnosis 1. Acute respiratory distress secondary to pulmonary fibrosis, emphysema with pulmonary hypertension-stable Patient with history of tobacco use Status post Lasix Echo shows preserved EF, cardiology following 2. 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 History of opioid abuse and chronic pain On methadone, continue 20 mg daily although patient says he wants to ultimately stop completely Patient states that he continues to have pain when he ambulates, patient does not want to go to a nursing facility Home health arranged for safety eval and PT 4. Anemia of chronic disease 5. Knee pain secondary to osteo-arthritis as noted on x-ray Pain control Patient Condition: Good Hospital Course Patient is a 66-year-old male with hypertension, opioid dependence COPD and coronary disease who presents with leg swelling and shortness of breath. Patient reported bilateral leg swelling, workup was negative for blood clot, echo showed no CHF. Abdominal ultrasound did show cirrhosis and hep C was detected. Patient reports knowing that he has hepatitis C but has not been treated for it. He denies any history of cirrhosis, lower extremity swelling was due to venous stasis and cirrhosis. Patient was often refusing treatment in house. Patient did report knee pain and imaging showed osteoarthritis. Patient was not interested in going to [place] [facility] wants to return home, complex case manager arrange for home health and outpatient follow-up with a chain repairer for initiation of hepatitis C treatment. On the day of discharge patient's vitals, labs and physical exam are stable he had no acute complaints and questions answered. Home Meds Active Scripts Pantoprazole* (Pantoprazole*) 40 Mg Tablet., 40 MG PO DAILY@06 for 14 Days Prov:RORY ANGULO MD 06/05/16 Reported Medications Acamprosate (Acamprosate Calcium) 333 Mg Tablet., 666 MG PO TID, TAB 06/01/16 Sertraline Hcl* (Sertraline Hcl*) 100 Mg Tablet, 100 MG PO QAM, #30 TAB 06/01/16 Trazodone Hcl* (Trazodone Hcl*) 50 Mg Tablet, 50 MG PO QHS, #30 TAB 06/01/16 Quetiapine Fumarate* (Quetiapine Fumarate*) 100 Mg Tablet, 100 MG PO HS, TAB 06/01/16 Follow-up Plan F/U WITH YOUR PCP AND A GI SPECIALIST FOR TREATMENT OF HEP C, follow-up with home health Primary Care Provider Not On Staff Doctor Time spent on discharge: > 30 minutes MONSTER HASSAN Mar 03, 2017 16:55
== END 2017-03-03 12:30 | disposition home health service (06) | DRG 192 ==
LOC: E/R 18:15 → TEL 20:22
PROVIDERS: ADMIT Family Medicine; ATTEND Family Medicine
DX: J43.9 Emphysema, unspecified (principal); I27.20 Pulmonary hypertension, unspecified; K74.60 Unspecified cirrhosis of liver; E83.42 Hypomagnesemia; I25.10 Atherosclerotic heart disease of native coronary artery without angina pectoris; D64.9 Anemia, unspecified; Z72.0 Tobacco use; E87.6 Hypokalemia; I87.8 Other specified disorders of veins; F11.10 Opioid abuse, uncomplicated; D63.8 Anemia in other chronic diseases classified elsewhere; M17.0 Bilateral primary osteoarthritis of knee; G89.29 Other chronic pain; B19.20 Unspecified viral hepatitis C without hepatic coma; I10 Essential (primary) hypertension
CPT/HCPCS: 36415; 71010; 74000; 76705; 80048; 80053; 80061; 80076; 80306; 82140; 82550; 82553; 82607; 82728; 82977; 83036; 83540; 83690; 83735; 83880; 84100; 84443; 84484; 85025; 85045; 86704; 86706; 86708; 86709; 86803; 87340; 93005; 93306; 93970; 96374; 96375; J1940; J3480; P9047